=== PATIENT | female | born 1950 | race Caucasian/White ===

== ENCOUNTER 2016-12-28 07:29 | Emergency (ER) | payer BC ==
--- NOTE | 2016-12-28 07:59 | UC ---
Respiratory Complaint HPI - HPI Summary HPI Summary: 66 yo female with one week hx of productive cough and fever now left eye redness and d/c no n/v/d no sob - History of Current Complaint Chief Complaint: UCRespiratory Stated Complaint: COUGH CONGESTION FEVER Time Seen by Provider: 12/28/16 07:51 Hx Obtained From: Patient Onset/Duration: Gradual Onset, Lasting Days Timing: Constant Severity Initially: Mild Severity Currently: Moderate Pain Intensity: 2 Pain Scale Used: 0-10 Numeric Character: Sputum Description: - thick and green Associated Signs And Symptoms: Positive: Fever, Chills, Nasal Congestion - Allergies/Home Medications Allergies/Adverse Reactions: Allergies Allergy/AdvReac Type Severity Reaction Status Date / Time Acetaminophen [From Percocet] AdvReac MADE HER Verified 12/28/16 07:42 FEEL WEIRD Oxycodone [From Percocet] AdvReac MADE HER Verified 12/28/16 07:42 FEEL WEIRD Home Medications: Home Medications Hydrochlorothiazide TAB* [Hydrodiuril TAB*] 25 mg PO DAILY 12/28/16 [History Confirmed 12/28/16] Afhaxtairpyav-Xotchdngql-Glnrx [Nyquil Severe Cold/Flu 5-6.25-10-325 mg/15Ml] 1 liq PO PRN 12/28/16 [History] PMH/Surg Hx/FS Hx/Imm Hx Previously Healthy: Yes Cardiovascular History: Hypertension Respiratory History: Bronchitis, Pneumonia - Surgical History Surgical History: Yes Surgery Procedure, Year, and Place: 1985, 1986, 1989, tonsils 1972, cholesysTectomy 2001, ruptured ovary (right) 1983, hysterectomy 1996, bilateral cataract removal 2011. D/CX2. abdominal plasty dec - Family History Known Family History: Positive: Cardiac Disease, Hypertension - Social History Alcohol Use: Occasionally Alcohol Amount: 2-3 PER WEEK Substance Use Type: Marijuana Substance Use Comment - Amount & Last Used: occasional, several times weekly Smoking Status (MU): Former Smoker Have You Smoked in the Last Year: No When Did the Patient Quit Smoking/Using Tobacco: 1980 - Immunization History Most Recent Influenza Vaccination: FALL 2013 Most Recent Tetanus Shot: UNKNOWN Most Recent Pneumonia Vaccination: NEVER Review of Systems Constitutional: Fever, Chills, Fatigue Skin: Negative Eyes: Drainage, Eye Redness ENT: Negative Respiratory: Cough Cardiovascular: Negative Gastrointestinal: Negative Genitourinary: Negative Motor: Negative Neurovascular: Negative Musculoskeletal: Negative Neurological: Negative Psychological: Negative All Other Systems Reviewed And Are Negative: Yes Physical Exam Triage Information Reviewed: Yes Appearance: Well-Appearing, No Pain Distress, Well-Nourished Vital Signs: Initial Vital Signs Temp 97.5 F 12/28/16 07:33 Pulse 73 12/28/16 07:33 Resp 16 12/28/16 07:33 BP 133/70 12/28/16 07:33 Pulse Ox 98 12/28/16 07:33 Vital Signs Reviewed: Yes Eyes: Positive: Conjunctiva Inflamed, Discharge - left ENT: Positive: Hearing grossly normal Respiratory: Positive: Lungs clear, Normal breath sounds, No respiratory distress, No accessory muscle use Cardiovascular: Positive: RRR, No Murmur Musculoskeletal: Positive: ROM Intact, No Edema Neurological: Positive: Alert Psychological Exam: Normal Skin Exam: Normal UC Diagnostic Evaluation - Laboratory O2 Sat by Pulse Oximetry: 98 - normal/not hypoxic - Radiology Xray Interpretation: No Acute Changes Radiology Interpretation Completed By: Radiologist Respiratory Course/Dx - Differential Dx/Diagnosis Provider Diagnoses: acute bronchitis. conjunctivitis (left) Discharge - Discharge Plan Condition: Stable Disposition: HOME Prescriptions: Azithromycin TAB* [Zithromax TAB*] 250 mg PO DAILY #6 tab Polymyx/Trimethoprim OPTH* [Polytrim OPHTH*] 1 - 2 drop LEFT EYE QID #1 btl Patient Education Materials: Acute Bronchitis (ED), Conjunctivitis (ED) Referrals: Jose Bell MD [Primary Care Provider] - 4 Days (if not better)
[2016-12-28 08:00] VITALS: BP 133/70
--- NOTE | 2016-12-28 08:19 | RAD ---
INDICATION: Cough and fever COMPARISON: None TECHNIQUE: PA and lateral dual-energy views were obtained. FINDINGS: Bones/Soft Tissues: There are no acute bony findings. Cardiomediastinal: The cardiomediastinal silhouette is normal. Lungs: There are no infiltrates. Pleura: There are no pleural effusions. Other: None IMPRESSION: NO ACTIVE DISEASE.
== END 2016-12-28 08:33 | disposition home or self-care (01) ==
LOC: UCCORT 07:29
DX: J20.9 Acute bronchitis, unspecified (principal); H10.32 Unspecified acute conjunctivitis, left eye; I10 Essential (primary) hypertension; Z90.49 Acquired absence of other specified parts of digestive tract; Z90.710 Acquired absence of both cervix and uterus; Z98.42 Cataract extraction status, left eye; Z98.41 Cataract extraction status, right eye; Z88.1 Allergy status to other antibiotic agents; F12.90 Cannabis use, unspecified, uncomplicated; Z87.891 Personal history of nicotine dependence
CPT/HCPCS: 71020; 99212; G0463

== ENCOUNTER → 2018-06-13 09:26 | Emergency (ER) | payer BC, MEDICARE ==
--- NOTE | 2018-06-13 09:50 | ED ---
HPI Cardiac - HPI Summary HPI Summary: This patient is a 67 year old F presenting to ED with a chief complaint of chest discomfort and SOB since 1 week ago. On the , she came back from vacation and reports I felt crappy since then. The CC is described the chest discomfort as intermittent and heavy. The patient rates the pain 2/10 in severity. Symptoms aggravated by nothing. Symptoms alleviated by walking up and down stairs and menial tasks involving exertion since the . Patient reports R sided whole body numbness on the (lasting less than a minute while walking across the house), dizziness and weakness since then. She also reports that her lower extremities are in pain and she feels her heart beating fast while walking up and down stairs. She also had pressure behind her eyes earlier in the week but it resolved. PMHx of HTN. Patient goes to [facility]. She was seen and was referred to a area mechanic. - History of Current Complaint Chief Complaint: EDChestPainROMI Stated Complaint: SOB/WEAKNESS/CHILLS Time Seen by Provider: 06/13/18 09:35 Hx Obtained From: Patient Onset/Duration: Started Weeks Ago Timing: Intermittent, Lasting Seconds Current Severity: Mild Pain Intensity: 2 Pain Scale Used: 0-10 Numeric Chest Pain Radiates: No Character: Other: - heavy discomfort Aggravating Factor(s): Other: - walking up and down stairs and menial tasks involving exertion Alleviating Factor(s): Nothing Associated Signs and Symptoms: Positive: Numbness, Weakness, Dizziness, Other: - SOB, pressure behind her eyes, LE pain while walking up and down stairs - Additional Pertinent History Primary Care Physician: MK - Allergy/Home Medications Allergies/Adverse Reactions: Allergies Allergy/AdvReac Type Severity Reaction Status Date / Time No Known Allergies Allergy Verified 06/13/18 09:33 Home Medications: Home Medications Conjugated Estrogens VAG CM* [Premarin VAG CREAM*] 1 applic VAGINAL BEDTIME PRN 06/13/18 [History Confirmed 06/13/18] Sertraline* [Zoloft*] 25 mg PO DAILY 06/13/18 [History Confirmed 06/13/18] PMH/Surg Hx/FS Hx/Imm Hx Previously Healthy: No Endocrine/Hematology History: Reports: Hx Anemia - OK NOW Cardiovascular History: Reports: Hx Hypertension - ON MEDS Denies: Other Cardiovascular Problems/Disorders Respiratory History: Reports: Hx Sleep Apnea - CPAP user for 12 years, Other Respiratory Problems/Disorders - mild post nasal drip Denies: Hx Asthma GI History: Reports: Hx Gastroesophageal Reflux Disease Denies: Other GI Disorders Musculoskeletal History: Reports: Hx Arthritis - LEFT KNEE Denies: Other Musculoskeletal History Sensory History: Reports: Hx Cataracts - TOVA, Hx Contacts or Glasses - glasses Denies: Hx Hearing Aid Opthamlomology History: Reports: Hx Cataracts - TOVA, Hx Contacts or Glasses - glasses - Cancer History Hx Chemotherapy: No Hx Radiation Therapy: No - Surgical History Surgery Procedure, Year, and Place: 1985, 1986, 1989, tonsils 1972, cholesysTectomy 2001, ruptured ovary (right) 1983, hysterectomy 1996, bilateral cataract removal 2011. D/CX2. abdominal plasty dec Hx Anesthesia Reactions: Yes - itchy rash on chest after one of the same day surgery Infectious Disease History: No Infectious Disease History: Denies: Traveled Outside the [place] in Last 30 Days - Family History Known Family History: Positive: Cardiac Disease, Hypertension - Social History Alcohol Use: Occasionally Alcohol Amount: 2-3 PER WEEK Substance Use Type: Reports: Marijuana Substance Use Comment - Amount & Last Used: occasional, several times weekly Smoking Status (MU): Former Smoker Have You Smoked in the Last Year: No Review of Systems Positive: Other - pressure behind her eyes (since resolved) Positive: Other - chest discomfort (heavy) Positive: Shortness Of Breath Positive: Other - LE pain while walking up and down stairs Neurological: Other - dizziness Positive: Weakness, Numbness - R sided whole body numbness All Other Systems Reviewed And Are Negative: Yes Physical Exam - Summary Physical Exam Summary: Appearance: The patient is well-nourished in no acute distress and in no acute pain. Skin: The skin is warm and dry and skin color reflects adequate perfusion. HEENT: The head is normocephalic and atraumatic. The pupils are equal and reactive. The conjunctivae are clear and without drainage. Nares are patent and without drainage. Mouth reveals moist mucous membranes and the throat is without erythema and exudate. The external ears are intact. The ear canals are patent and without drainage. The tympanic membranes are intact. Neck: The neck is supple with full range of motion and non-tender. There are no carotid bruits. There is no neck vein distension. Respiratory: Chest is non-tender. Lungs are clear to auscultation and breath sounds are symmetrical and equal. Cardiovascular: Heart is regular rate and rhythm. There is no murmur or rub auscultated. There is no peripheral edema and pulses are symmetrical and equal. Abdomen: The abdomen is soft and non-tender. There are normal bowel sounds heard in all four quadrants and there is no organomegaly palpated. Musculoskeletal: There is no back tenderness noted. Extremities are non-tender with full range of motion. There is good capillary refill. There is no peripheral edema or calf tenderness elicited. Neurological: Patient is alert and oriented to person, place and time. The patient has symmetrical motor strength in all four extremities. Cranial nerves are grossly intact. Deep tendon reflexes are symmetrical and equal in all four extremities. Psychiatric: The patient has an appropriate affect and does not exhibit any anxiety or depression. GCS: 15 Triage Information Reviewed: Yes Vital Signs On Initial Exam: Initial Vitals Temp Pulse Resp BP Pulse Ox 96.3 F 89 14 115/85 98 06/13/18 09:29 06/13/18 09:29 06/13/18 09:29 06/13/18 09:29 06/13/18 09:29 Vital Signs Reviewed: Yes Diagnostics - Vital Signs Vital Signs Temp Pulse Resp BP Pulse Ox 06/13/18 09:29 96.3 F 89 14 115/85 98 - Laboratory Result Diagrams: 06/13/18 10:25 06/13/18 10:25 Lab Statement: Any lab studies that have been ordered have been reviewed, and results considered in the medical decision making process. - Radiology Chest x-ray Radiology Interpretation Completed By: Radiologist Summary of Radiographic Findings: NO ACTIVE CARDIOPULMONARY DISEASE. ED physician has reviewed this report. - CT Brain CT CT Interpretation Completed By: Radiologist Summary of CT Findings: No intracranial mass or hemorrhage is noted. ED physician has reviewed this report. - EKG 0930 Cardiac Rate: NL - 73 BPM EKG Rhythm: Sinus Rhythm Summary of EKG Findings: nonspecific inferoseptal changes consistent with Disposition - Course Course Of Treatment: Ms. Camarillo presented to with a concern for an episode that occurred last Saturday where she had sudden numbness of the right side of her body. She did a FAST exam on herself at the time and found nothing but the numbness of the right side and it did not last for long certainly less than a half an hour. Since that time she has felt fatigued and is becoming concerned because she does get some chest pressure and shortness of breath when she exerts herself. She denies any other symptomatology. She was nontoxic in appearance when I saw her and her vital signs were stable. Her exam was unremarkable with an NIH stroke scale of 0. There was the faintest suggestion of dysmetria on the right side of her body but this was very subjective. Sensory was intact. She was worked up for cardiac including a delayed troponins. She was checked with a d-dimer and chest x-ray. A CT scan of the brain was obtained and was unremarkable. I spoke with Dr. White and he felt that additional outpatient workup would be sufficient. They're willing to follow her in the clinic in the next couple of weeks. He recommends starting her on an aspirin and atorvastatin. - Diagnoses Provider Diagnoses: TIA (transient ischemic attack), Chest pain Discharge - Sign-Out/Discharge Documenting (check all that apply): Patient Departure - Discharge Plan Condition: Stable Disposition: HOME Prescriptions: Atorvastatin* [Lipitor 40 MG*] 40 mg PO DAILY #30 tab Referrals: Nadine Ceballos PA [Primary Care Provider] - Alyce White MD [Medical Doctor] - Quintin Pringle DO [Doctor of Osteopathy] - Additional Instructions: Please return to the emergency department with any new or worsening symptoms. PLEASE RESUME TAKING YOUR ASPIRIN. Follow up with Dr. White and Dr. Pringle within the next 2-3 days. - Billing Disposition and Condition Condition: STABLE Disposition: Home - Attestation Statements Document Initiated by Kerrie: Yes Documenting Scribe: Solis Aguilar Provider For Whom Kerrie is Documenting (Include Credential): Raymundo Motley MD Scribe Attestation: I, Solis Aguilar, scribed for Raymundo Motley MD on 06/13/18 at 1448. Scribe Documentation Reviewed: Yes Provider Attestation: The documentation as recorded by the Solis riggs accurately reflects the service I personally performed and the decisions made by me, Raymundo Motley MD Status of Scribe Document: Viewed
--- OUTSIDE RECORDS SUMMARY | 2018-06-13 10:18 | XMS REPORT | Continuity of Care Document ---
:1950 External Reference #:[id number] Author Name Geronimo Sosa Care Team Providers Name Role Phone HCP given Primary Care Physician Unavailable Payers Type Date Identification Numbers Payment Provider Subscriber Effective: Policy Number: [id number] [facility] Shira Matos 2016 Services Expires: 2017 PayID: [id number] [place] [address] Effective: 2017 Policy Number: [employer] Shira Matos [id number] Ppo PayID: [id number] [address] [address] [place] [address] Effective: 2016 Policy Number: [facility] Shira Matos [id number] Services Expires: 2017 PayID: [id number] [place] [address] Advance Directives Description No Information Available Problems Date Description Provider Status Onset: 01/24/2004 Chondromalacia of patella Navin Harris M.D. Active Onset: 05/07/2016 Essential hypertension Tari Bell M.D. Active Onset: 12/20/2008 Essential hypertension Heather Garcia MD Inactive Inactive: 09/12/2015 Family History Date Family Member(s) Problem(s) Comments Father due to [place] () - AGE 57 Father 1924 Mother TIA 80's Mother Mouth Cancer tongue Mother 1928 Mother macular degeneration Number of Children 2 sons and 1 daughter First Son Sravan First Son 1985 First Son on luvox. Second Son Douglas Second Son 1986 First Daughter Shelby First Daughter 1989 First Brother General Health Good First Brother Angel First Brother 1955 Second Brother General Health Poor Second Brother Spastic Familial Paresis Second Brother Mario Second Brother 1958 : Third Brother due to he had spastic familial (07/31/2012) Pulmonary Embolus paraparesis and severe varicose veins, limited in movement Third Brother Raúl Third Brother 1960 Fourth Brother General Health Good Fourth Brother Coy Fourth Brother 1964 Fourth Brother familial spastic paresis. Fifth Brother Navin Fifth Brother 1965 Fifth Brother ITP-- age 18 yr.--Pe to lung 3 days post op Paternal Grandfather 47 of [place] Paternal Grandmother age 87 Maternal Grandfather 86 or so, "old age" Maternal Grandmother coronary artery disease, 86 and had colon cancer. Social History Type Date Description Comments Sex Unknown Education Highest level of education completed is post grad Marital Status Patient is , has 3 children. 1 Son graduated [employer], age 27, working in [place]. One son is an glass science engineer, lives in [place]. Daughter at [employer]. 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 Uses sunscreen Seat Belt/Car Seat Always uses a seat belt Currently Active The patient is currently sexually active Contraceptive Methods Does not currently use any method of control Age 1st Gwinner First intercourse was at age 21 # Partners in a Lifetime The patient has had 2 sexual partners Additional Info Sexual preference is men Allergies, Adverse Reactions, Alerts Description No Known Drug Allergies Medications Medication Date Status Form Strength Qnty SIG Indications Ordering Provider Fluticasone 12/19 Active Suspension 50mcg/Act 16uni [place] Two J01.90 Silcoff, ts Sprays In Yoan Each BradyDGagandeep Nostril Twice A Day Until Better Hydrochlorothiazi 09/17 Active Tablets 25mg 90tab 1 every I10 Silcoff, de s day for bp Kellee Milton Proair HFA 08/15 Active Aerosol 108(90Bas 8.5un Take 1-2 J20.9 Silcoff, e) its Puffs Up Yoan, mcg/Act To Four M.D. Times A Day as Needed For Breathing Sertraline HCL 04/17 Active Tablets 50mg 90tab Take 05/21 F33.0 s Tablet By Yoan, Mouth Two M.D. Times A Day Premarin 05/31 Active Cream 0.625mg/G 30gm uses 1 M gram per Yoan, week or M.D. 1/2 gram twice weekly. Aleve 06/24 Active Tablets 220mg OTC as needed migraine, body aches Excedrin 06/24 Active Tablets 250-250mg occassiona Unknown lly for headache and body aches Cpap 08/27 Active Jose, Heather SUERO Aspir-[address] 81mg prn I10 Unknown / Lisinopril 09/17 Hx Tablets 10mg 90tab take 1 I10 s tablet Yoan, - every M.D. 09/17 for blood pressure control Flonase Allergy 08/14 Hx Suspension 50mcg/Act 9.900 2 sprays J01.90 Silco, ml twice a Yoan, - day until M.D. 12/19 Azithromycin 07/08 Hx Tablets 250mg 6tabs 2 tabs day R05 one and 1 Yoan, - tab days M.D. 08/14 2- Fluticasone 07/08 Hx Suspension 50mcg/Act 16uni two sprays J01.90 Silcoff, ts (50 Yoan, - mcg/spray) M.D. 07/27 nostril once daily for sinus congestion Metronidazole 03/09 Hx Tablets 500mg 15tab take 1 Sopchak s tablet by Quintin, - mouth 3 D.O. 03/14 times day for 5 days Hydrochlorothiazi 05/07 Hx Tablets 25mg 90tab 1 every I10 Silcoff, s day for bp Yoan - M.D. 09/17 Sertraline HCL 04/03 Hx Tablets 50mg 60tab 1 by mouth F33.0 s twice a A. - day Maranda, 04/16 M.D. Metronidazole 07/29 Hx Cream 0.75% 45gm insert 5 Tyler, gm Zuleika SUERO - vaginally 04/16 qhs for days Aspir-[address] 06/[address] 81mg 1 by mouth I10 Sopmamadouk, every day Quintin - D.OGagandeep 04/17 Premarin 12/18 Hx Cream 0.625mg/G 50G apply 0.5 624.1 Silcoiqra, M g qhs,pv x Yoan, - 2 weeks M.D. 02/19 reduce to using 2 days a week and/or applying small amt to the vaginal opening Azithromycin 12/18 Hx Tablets 250mg 6tabs 2 tabs day 466.0 Silcoff, one, one Yoan, - tab days M.D. 06/25 2- Prednisone 12/18 Hx Tablets 20mg 5tabs 1 tab po 466.0 Silcoiqra, qam x 5 Yoan, - days M.D. 06/25 Ventolin HFA 12/18 Hx Aerosol 108(90Bas 1cani 2 puff q 466.0 Silcoff, e) mcg/ac ster 4-6 Max Milton M.D. 06/25 Omeprazole 03/04 Hx Tablets 20mg 60tab 1 po bid 472.1 Juliano, s Max Milton M.D. 02/19 Hydrochlorothiazi 03/04 Hx Tablets 25mg 90tab Take One 401.9 Juliano, s Tablet By Yoan, - Mouth M.D. 02/19 Every Day Fish Oil 08/31 Hx Capsules Silcoiqra, Max Milton M.D. 03/03 PT For L Arm And 11/26 Hx please 729.5 Juliano Neck Pain evaluate Yoan (Suspected C5-6 - and treatKellee Radiculopathy) 01/16 in hep, modalities prn. 723.1 Bactroban 08/03/2008 - Hx Cream 2% 15G rub small 682.8 Jose, 01/16/2010 amount into Heather SUERO affected areas on right forearm tid x 5 days. Calcium-Vitamin 06/21/2008 - Hx Tablets Jose D 03/03/2012 Heather SUERO Centrum Silver 06/21/2008 - Hx Tablets 1 po qd Jose, 03/03/2012 Heather SUERO Amoxicillin 05/07/2008 - Hx Capsules 500mg 30caps 1 tid For 10 462 Tari A. 06/21/2008 Jessie Bell M.D. Hydrocodone 10/17/2007 - Hx Tablets 5-500 30tabs one to 2 724.3 Jose Bitartrate/Apap 06/21/2008 mg tablets po Heather SUERO q6h prn for pain Levaquin 08/14/2007 - Hx Tablets 500mg 10tabs 1 PO Once 466.0 Jose, 08/24/2007 Daily as Heather SUERO Directed Sertraline HCL 08/14/2007 - Hx Tablets 50mg 30tabs one tablet po 296.31 Silcoff, 03/03/2012 once daily in Yoan, the evening Kellee Robitussin ac 08/14/2007 - Hx 250ml 10 cc po q8h 466.0 Jose, 10/17/2007 prn Heather SUERO Wellbutrin XL 03/25/2007 - Hx Tablets ER 150mg 30tabs 1 po qd 296.31 Silcoff, 03/03/2012 24HR Kellee Milton Aspirin 02/25/2007 - Hx Tablets 81mg 1 PO qd For Unknown 03/03/2012 Heart Disease Prevention Premarin 08/27/2006 - Hx Cream 0.625 50G apply as 627.3 Jose, Vaginal 12/20/2008 mg/GM directed Heather SUERO Cipro 04/18/2006 - Hx Tablets 250mg 14tabs one tablet po Jose, 04/25/2006 bid for 5 Heather benavides Singulair 11/30/2005 - Hx Tablets 10mg 30tabs 1 po qd in 786.2 Silcoff, 03/19/2006 evening Kellee Milton Amoxil 11/03/2005 - Hx Tablets 500mg 40tabs 2 tablets po 473.0 Jose, 11/13/2005 bid Heather SUERO Robitussin A-c 11/03/2005 - Hx Syrup 100mg 250ml 10 cc po q 8h 473.0 Silcoff, 03/19/2006 ;10mg prn Yoan /ALEENA Goodson 786.2 Cephalexin 06/12/2005 Hx Capsules 250mg 40caps 1 po qid 682.9 Tari - A. 07/10/2005 Kellee Bell Aristocort 06/12/2005 Hx Ointment 0.1% 30gm rub in well 782.1 Tari - bid and prn A. 07/10/2005 itch to rash Kellee Bell Vivelle 01/16/2005 Hx Patches 0.05mg 1Box use 2 times A Jose, - /Day week as Heather SUERO 08/27/2006 prescribed Prozac 09/26/2004 Hx Capsules 40mg 60caps 2 tabs of 20 Breiman, - mg Dacia, 07/10/2005 N.P. Prozac 09/26/2004 Hx Capsules 20mg 180caps 2 tabs A day Max Garcia MD 09/17/2006 Work Note 06/22/2004 Hx patient seen 485 maranda - and treated 11/30/2005 here. she has had pnuemonia at least since 06/13/03 and can return to work. Doxycycline 06/13/2004 Hx Tablets 100mg 20tabs 1 cap bid for Navin H. - bronchopneumon Steven, 09/26/2004 toy Goodson Phenergan W/ Codeine 06/13/2004 Hx Syrup 6.25mg 120ml 1 or 2 tsp po Navin H. - ;10mg/ q 3 hr prn for Nitoger, 09/26/2004 5ML cough (patient M.Homer bringing rx) Work Note 06/05/2004 Hx please excuse Max Isaacs from Dacia, 11/30/2005 work 06/02/04 N.P. until 06/08/04. She is being evaluated an HRT Patch 06/02/2004 Hx Tari - AGagandeep 07/10/2005 Kellee Bell Advil 06/02/2004 Hx Tablets 200mg Tari - A. 09/26/2004 Kellee Bell Rimantadine 06/02/2004 Hx Tablets 100mg 10tabs 1 po bid for 487.1 Tari - influenza A. 06/07/2004 Kellee Bell Prozac 04/14/2003 Hx Capsules 20mg 180caps take 2 tablets Sotrmyiman, - everyday Dacia 09/26/2004 N.P. Hydrochlorothiazide 04/14/2003 Hx Tablets 25mg 90tabs take 1 tablet 401.9 Juliano, - orally Yoan, 03/03/2012 everyday M.D. Prozac 20 MG 2 Tabs 02/11/2003 Hx Tabs 90tabs take 2 tablets Breiman, Everyday - everyday Dacia, 03/12/2003 N.P. Sertraline HCL Hx Tablets 50mg one tablet po 296.31 Maranda , - once daily in Tari 04/03/2016 the evening A., Kellee Medications Administered in Office Medication Date Status Form Strength Qnty SIG Indications Ordering Provider H1N1 Swine Flu Administered Injection Nurse's Vaccine 009 Schedule Immunizations CPT Code Status Date Vaccine Lot # [id number] Given 01/27/2018 Influenza Vaccine Split Virus Preservative Free Im [id number] Use 07696 Given 09/18/2017 Shingrix Zoster (Shingles) Vaccine (HZV) [id number] Recomb,Subnit,Adjuvanted 19444 Given 04/26/2017 Influenza Virus Vaccine, Quadrivalent, Split, [id number] Preservative Free 44528 Given 10/22/2016 Prevnar 13 [id number] 77522 Given 04/03/2016 Influenza Virus Vaccine, Quadrivalent, Split, [id number] Preservative Free 04187 Given 11/02/2015 Zostavax [id number] U-Flu Given 05/24/2015 Influenza,Unspecified 78335 Given 03/19/2014 Flu, Split Virus 3Yrs [id number] 64438 Given 05/23/2013 Flu, Split Virus 3Yrs 52206 Given 04/21/2012 Flu, Split Virus 3Yrs [id number] 98604 Given 05/17/2011 Flu, Split Virus 3Yrs [id number] 29739 Given 01/20/2010 Adacel or Boostrix, TDaP [id number] 22593 Given 03/19/2008 Flu, Split Virus 3Yrs [id number] 55579 Given 05/05/2007 Flu, Split Virus 3Yrs [id number] 12097 Given 04/10/2006 Flu, Split Virus 3Yrs 86997 Given 04/10/2006 Flu, Split Virus 3Yrs [id number] 18453 Given 04/26/2005 Pneumococcal Immunization 24596 Given 04/26/2005 Pneumococcal Immunization [id number] 53234 Given 04/26/2005 Flu, Split Virus 3Yrs 79957 Given 04/26/2005 Flu, Split Virus 3Yrs [id number] 14735 Given 05/05/2003 Flu, Split Virus 3Yrs 57286 Given 05/05/2003 Flu, Split Virus 3Yrs Vital Signs Date Vital Result Comment 06/12/2018 11:02am BP Systolic 117 mmHg BP Diastolic 80 mmHg Heart Rate 101 /min Weight 163.00 lb 05/01/2018 9:05am BP Systolic 130 mmHg BP Diastolic 70 mmHg Height 67.25 inches 5'7.25" Weight 168.00 lb BMI (Body Mass Index) 26.1 kg/m2 11/14/2017 9:44am BP Systolic 132 mmHg BP Diastolic 74 mmHg Body Temperature 98.9 F Weight 170.00 lb 10/22/2017 10:56am BP Systolic 138 mmHg BP Diastolic 84 mmHg BP Systolic Recheck 132 mmHg BP Diastolic Recheck 80 mmHg Weight 170.00 lb 09/17/2017 9:52am BP Systolic 148 mmHg BP Diastolic 88 mmHg BP Systolic Recheck 150 mmHg BP Diastolic Recheck 98 mmHg Height 67.50 inches 5'7.50" Weight 174.00 lb BMI (Body Mass Index) 26.8 kg/m2 08/15/2017 9:05am BP Systolic 140 mmHg BP Diastolic 90 mmHg BP Systolic Recheck 140 mmHg BP Diastolic Recheck 90 mmHg Body Temperature 98.7 F Weight 174.00 lb 07/08/2017 4:38pm BP Systolic 120 mmHg BP Diastolic 78 mmHg Heart Rate 72 /min O2 % BldC Oximetry 97 % Body Temperature 99.6 F Weight 173.00 lb 03/07/2017 1:08pm BP Systolic 120 mmHg BP Diastolic 78 mmHg Height 67 inches 5'7" Weight 168.00 lb BMI (Body Mass Index) 26.3 kg/m2 10/22/2016 8:58am BP Systolic 120 mmHg BP Diastolic 70 mmHg Heart Rate 80 /min Respiratory Rate 16 /min Weight 170.00 lb 07/12/2016 8:57am BP Systolic 134 mmHg BP Diastolic 84 mmHg Weight 171.00 lb 05/07/2016 9:11am BP Systolic 146 mmHg k [id number]=[id number] BP Diastolic 80 mmHg k ggdf=930b Heart Rate 70 /min 04/17/2016 1:47pm BP Systolic 160 mmHg k BP Diastolic 90 mmHg k Heart Rate 70 /min Weight 172.00 lb 04/03/2016 3:29pm BP Systolic 180 mmHg k BP Diastolic 88 mmHg k Heart Rate 70 /min Respiratory Rate 16 /min Height 67.25 inches 5'7.25" Weight 170.00 lb BMI (Body Mass Index) 26.4 kg/m2 11/02/2015 2:24pm BP Systolic 118 mmHg BP Diastolic 74 mmHg BP Systolic Recheck 126 mmHg R arm sitting BP Diastolic Recheck 86 mmHg R arm sitting Heart Rate 92 /min Weight 165.00 lb 09/12/2015 3:53pm BP Systolic 132 mmHg BP Diastolic 74 mmHg Height 67.5 inches 5'7.50" Weight 175.00 lb BMI (Body Mass Index) 27.0 kg/m2 07/29/2014 9:41am BP Systolic 136 mmHg BP Diastolic 82 mmHg Height 67.25 inches 5'7.25" Weight 178.00 lb BMI (Body Mass Index) 27.7 kg/m2 06/25/2014 2:10pm BP Systolic 160 mmHg BP Diastolic 98 mmHg Height 67.25 inches 5'7.25" Weight 178.00 lb BMI (Body Mass Index) 27.7 kg/m2 02/19/2014 1:27pm BP Systolic 118 mmHg BP Diastolic 80 mmHg Height 67 inches 5'7" Weight 180.00 lb BMI (Body Mass Index) 28.2 kg/m2 06/25/2013 2:08pm BP Systolic 131 mmHg BP Diastolic 82 mmHg Heart Rate 63 /min Height 67 inches 5'7" Weight 177.00 lb BMI (Body Mass Index) 27.7 kg/m2 12/18/2012 4:03pm BP Systolic 128 mmHg BP Diastolic 86 mmHg Heart Rate 70 /min O2 % BldC Oximetry 9798 % Body Temperature 98.9 F Weight 175.00 lb 09/12/2012 9:01am BP Systolic 135 mmHg BP Diastolic 76 mmHg Heart Rate 65 /min Height 67 inches 5'7" Weight 177.00 lb BMI (Body Mass Index) 27.7 kg/m2 06/30/2012 1:51pm BP Systolic 115 mmHg BP Diastolic 79 mmHg Heart Rate 76 /min Weight 177.00 lb 04/21/2012 9:14am BP Systolic 142 mmHg BP Diastolic 79 mmHg BP Systolic Recheck 149 mmHg BP Diastolic Recheck 79 mmHg Heart Rate 89 /min 79 Height 67 inches 5'7" Weight 169.00 lb BMI (Body Mass Index) 26.5 kg/m2 Last Menstrual Period 0 hysterectomy 03/04/2012 1:50pm BP Systolic 177 mmHg BP Diastolic 90 mmHg BP Systolic Recheck 132 mmHg BP Diastolic Recheck 82 mmHg Heart Rate 80 /min 75 Body Temperature 98.7 F Height 67 inches 5'7" Weight 171.00 lb BMI (Body Mass Index) 26.8 kg/m2 Last Menstrual Period 0 08/31/2010 3:47pm BP Systolic 134 mmHg BP Diastolic 75 mmHg BP Systolic Recheck 135 mmHg BP Diastolic Recheck 74 mmHg Heart Rate 76 /min 73 Weight 190.00 lb 01/16/2010 9:41am BP Systolic 131 mmHg BP Diastolic 76 mmHg Height 67.25 inches 5'7.25" Weight 198.00 lb BMI (Body Mass Index) 30.8 kg/m2 05/27/2009 8:44am BP Systolic 137 mmHg elect BP Diastolic 81 mmHg elect BP Systolic Recheck 122 mmHg BP Diastolic Recheck 78 mmHg Heart Rate 80 /min Height 67.75 inches 5'7.75" Weight 192.00 lb BMI (Body Mass Index) 29.4 kg/m2 12/20/2008 10:15am BP Systolic 102 mmHg BP Diastolic 60 mmHg Height 67.75 inches 5'7.75" Weight 207.00 lb BMI (Body Mass Index) 31.7 kg/m2 11/26/2008 1:58pm BP Systolic 118 mmHg BP Diastolic 70 mmHg Height 67.5 inches 5'7.50" Weight 211.00 lb 210 BMI (Body Mass Index) 32.6 kg/m2 08/03/2008 5:07pm BP Systolic 120 mmHg BP Diastolic 76 mmHg Body Temperature 98.0 F 06/21/2008 3:42pm BP Systolic 122 mmHg BP Diastolic 70 mmHg Weight 204.00 lb 05/10/2008 9:47am BP Systolic 110 mmHg BP Diastolic 74 mmHg 05/07/2008 11:41am BP Systolic 116 mmHg BP Diastolic 88 mmHg Body Temperature 100.6 F Height 68 inches 5'8" 10/17/2007 3:39pm BP Systolic 120 mmHg BP Diastolic 78 mmHg Height 68 inches 5'8" Weight 200.00 lb BMI (Body Mass Index) 30.4 kg/m2 Last Menstrual Period 0 09/12/2007 9:45am BP Systolic 138 mmHg BP Diastolic 80 mmHg BP Systolic Recheck 130 mmHg BP Diastolic Recheck 80 mmHg Height 68 inches 5'8" Weight 194.00 lb BMI (Body Mass Index) 29.5 kg/m2 08/14/2007 9:45am BP Systolic 132 mmHg BP Diastolic 84 mmHg Body Temperature 98.5 F Height 68 inches 5'8" Weight 195.50 lb BMI (Body Mass Index) 29.7 kg/m2 05/15/2007 12:58pm BP Systolic 120 mmHg BP Diastolic 76 mmHg Height 68 inches 5'8" Weight 200.00 lb BMI (Body Mass Index) 30.4 kg/m2 03/25/2007 4:47pm BP Systolic 116 mmHg BP Diastolic 58 mmHg Height 68 inches 5'8" 02/25/2007 1:34pm BP Systolic 110 mmHg BP Diastolic 80 mmHg Body Temperature 98.9 F Height 68 inches 5'8" Weight 206.00 lb BMI (Body Mass Index) 31.3 kg/m2 Last Menstrual Period 0 08/27/2006 8:49am BP Systolic 118 mmHg BP Diastolic 80 mmHg Height 68 inches 5'8" Weight 214.00 lb BMI (Body Mass Index) 32.5 kg/m2 Last Menstrual Period 0 03/19/2006 2:42pm BP Systolic 100 mmHg BP Diastolic 60 mmHg Body Temperature 97.9 F Height 68 inches 5'8" Weight 224.50 lb BMI (Body Mass Index) 34.1 kg/m2 11/30/2005 11:34am BP Systolic 120 mmHg BP Diastolic 80 mmHg Body Temperature 98.6 F Height 68 inches 5'8" Weight 225.00 lb BMI (Body Mass Index) 34.2 kg/m2 11/03/2005 9:47am BP Systolic 118 mmHg BP Diastolic 90 mmHg Body Temperature 98.6 F Height 68 inches 5'8" 09/29/2005 11:46am BP Systolic 120 mmHg BP Diastolic 72 mmHg Height 68 inches 5'8" Weight 225.00 lb Per PT BMI (Body Mass Index) 34.2 kg/m2 07/10/2005 3:20pm BP Systolic 118 mmHg BP Diastolic 80 mmHg Height 68 inches 5'8" Weight 223.00 lb BMI (Body Mass Index) 33.9 kg/m2 06/12/2005 3:02pm BP Systolic 110 mmHg BP Diastolic 78 mmHg Body Temperature 98.3 F Height 68 inches 5'8" 01/16/2005 9:47am BP Systolic 122 mmHg BP Diastolic 72 mmHg Height 68 inches 5'8" Weight 211.00 lb BMI (Body Mass Index) 32.1 kg/m2 09/26/2004 1:44pm BP Systolic 120 mmHg BP Diastolic 78 mmHg Height 68 inches 5'8" Weight 201.00 lb BMI (Body Mass Index) 30.6 kg/m2 06/22/2004 4:08pm BP Systolic 120 mmHg BP Diastolic 80 mmHg Height 68 inches 5'8" Weight 227.00 lb BMI (Body Mass Index) 34.5 kg/m2 06/15/2004 11:13am Body Temperature 98.5 F Height 68 inches 5'8" 06/13/2004 4:54pm Body Temperature 98.4 F Pt feels warmer than that. Height 68 inches 5'8" Weight 225.00 lb per pt BMI (Body Mass Index) 34.2 kg/m2 06/02/2004 5:15pm Heart Rate 80 /min Respiratory Rate 16 /min Body Temperature 99.3 F Height 68 inches 5'8" 03/17/2004 11:43am BP Systolic 110 mmHg BP Diastolic 90 mmHg Height 68 inches 5'8" Weight 227.00 lb BMI (Body Mass Index) 34.5 kg/m2 01/04/2004 12:00pm BP Systolic 110 mmHg BP Diastolic 70 mmHg Height 68 inches 5'8" Weight 228.00 lb BMI (Body Mass Index) 34.7 kg/m2 Last Menstrual Period 0 pt had hyster in 199512/04/2003 9:46am BP Systolic 130 mmHg BP Diastolic 82 mmHg Body Temperature 98.2 F Weight 222.00 lb 07/22/2003 1:16pm BP Systolic 140 mmHg BP Diastolic 86 mmHg Weight 222.00 lb 03/12/2003 1:56pm BP Systolic 152 mmHg BP Diastolic 90 mmHg Weight 184.00 lb Last Menstrual Period 0 Results Test Date Facility Test Result H/L Range Note Comp Metabolic Panel 09/18/2017 [facility] Sodium 137 mmol/L Low 139- 145 [phone] Potassium 3.6 mmol/L N 3.5-5.0 Chloride 100 mmol/L Low 101-111 Co2 Carbon Dioxide 28 mmol/L N 22-32 Anion Gap 9 mmol/L N 2-11 Glucose 104 mg/dL High 70-100 Blood Urea Nitrogen 10 mg/dL N 6-24 Creatinine 0.71 mg/dL N 0.51-0.95 BUN/Creatinine Ratio 14.1 N 8-20 Calcium 9.3 mg/dL N 8.6-10.3 Total Protein 7.2 g/dL N 6.4-8.9 Albumin 4.3 g/dL N 3.2-5.2 Globulin 2.9 g/dL N 2-4 Albumin/Globulin Ratio 1.5 N 1-3 Total Bilirubin 0.40 mg/dL N 0.2-1.0 Alkaline Phosphatase 60 U/L N 34-104 Alt 13 U/L N 7-52 Ast 19 U/L N 13-39 Egfr Non- 82.6 >60 Egfr 106.3 >60 1 CBC Auto Diff 09/18/2017 [facility] White Blood Count 5.3 10^3/uL N 3.5-10.8 [phone] Red Blood Count 3.97 10^6/uL Low 4.0-5.4 Hemoglobin 12.8 g/dL N 12.0-16.0 Hematocrit 38 % N 35-47 Mean Corpuscular Volume 95 fL N 80-97 Mean Corpuscular Hemoglobin 32 pg High 27-31 Mean Corpuscular HGB Conc 34 g/dL N 31-36 Red Cell Distribution Width 14 % N 10.5-15 Platelet Count 280 10^3/uL N 150-450 Mean Platelet Volume 8.5 um3 N 7.4-10.4 Abs Neutrophils 3.3 10^3/uL N 1.5-7.7 Abs Lymphocytes 1.5 10^3/uL N 1.0-4.8 Abs Monocytes 0.5 10^3/uL N 0-0.8 Abs Eosinophils 0 10^3/uL N 0-0.6 Abs Basophils 0.1 10^3/uL N 0-0.2 Abs Nucleated RBC 0 10^3/uL Granulocyte % 61.5 % N 38-83 Lymphocyte % 27.3 % N 25-47 Monocyte % 9.4 % High 0-7 Eosinophil % 0.8 % N 0-6 Basophil % 1.0 % N 0-2 Nucleated Red Blood Cells % 0 Lipid Profile (Trig/Chol/HDL) 09/18/2017 [facility] Triglycerides 76 mg /dL 2 [phone] Cholesterol 215 mg/dL 3 HDL Cholesterol 72.5 mg/dL 4 LDL Cholesterol 127 mg/dL 5 Laboratory test 09/18/2017 [facility] Hepatitis C Nonreactive Nonreactive finding [phone] Antibody Laboratory test 09/17/2017 [facility] Cytology SEE RESULT 6 finding [phone] BELOW Ua Inhouse 09/17/2017 In House Ua Glucose - 7 Ua Bilirubin - Ua Ketones - Ua Specific Gatzke 1.005 Ua Blood - Ua PH 6.0 Ua Protein - Ua Urobilinogen - Ua Nitrite - Ua Leukocytes - Laboratory test 03/08/2017 [facility] Stool Occult SEE RESULT 8 finding [phone] Blood Diag BELOW Laboratory test 07/25/2016 [facility] Surgical SEE RESULT 9, 10 finding [phone] Pathology BELOW Urine Micro 07/12/2016 In House Ua WBC 1-2 11 Inhouse Ua RBC - Ua Casts - Ua Epi TNTC Ua Other - Ua Glucose - Ua Bilirubin - Ua Ketones - Ua Specific Gatzke 1.005 Ua Blood - Ua PH 7.5 Ua Protein - Ua Urobilinogen - Ua Nitrite - Ua Leukocytes - Basic Metabolic Panel 07/12/2016 [facility] Sodium 137 mmol/L N 133- 145 [phone] Potassium 3.9 mmol/L N 3.5-5.0 Chloride 100 mmol/L Low 101-111 Co2 Carbon Dioxide 31 mmol/L N 22-32 Anion Gap 6 mmol/L N 2-11 Glucose 95 mg/dL N 70-100 Blood Urea Nitrogen 12 mg/dL N 6-24 Creatinine 0.71 mg/dL N 0.51-0.95 BUN/Creatinine Ratio 16.9 N 8-20 Calcium 9.5 mg/dL N 8.6-10.3 Egfr Non- 82.9 N >60 Egfr 106.6 N >60 12 Xray 04/03/2016 [facility] Medicine X-Ray, Chest, 2 wnl Views Laboratory test 01/23/2015 [facility] Culture Genital & SEE RESULT 13 finding [phone] Sensitivity BELOW Gardnerella/Yeast: Vaginal Dna SEE RESULT BELOW 14 Trichomonas: Vaginal Dna Probe SEE RESULT BELOW 15 CBC Auto Diff 01/10/2015 [facility] White Blood Count 4.9 10^3/uL N 4.8-10.8 16 [phone] Red Blood Count 3.80 10^6/uL Low 4.0-5.4 Hemoglobin 12.2 g/dL N 12.0-16.0 Hematocrit 37 % N 35-47 Mean Corpuscular Volume 97 fL N 80-97 Mean Corpuscular Hemoglobin 32 pg High 27-31 Mean Corpuscular HGB Conc 33 g/dL N 31-36 Red Cell Distribution Width 13 % N 10.5-15 Platelet Count 203 10^3/uL N 150-450 Mean Platelet Volume 8 um3 N 7.4-10.4 Abs Neutrophils 3.0 10^3/uL N 1.5-7.7 Abs Lymphocytes 1.3 10^3/uL N 1.0-4.8 Abs Monocytes 0.5 10^3/uL N 0-0.8 Abs Eosinophils 0 10^3/uL N 0-0.6 Abs Basophils 0.1 10^3/uL N 0-0.2 Abs Nucleated RBC 0 10^3/uL N Granulocyte % 61.0 % N 38-83 Lymphocyte % 27.0 % N 25-47 Monocyte % 9.9 % High 1-9 Eosinophil % 0.7 % N 0-6 Basophil % 1.4 % N 0-2 Nucleated Red Blood Cells % 0 N Type & Screen 01/10/2015 [facility] Patient Blood Type O Positive N [phone] Antibody Screen NEGATIVE N CBC Auto Diff 08/16/2014 [facility] White Blood Count 8.6 10^3/uL N 4.8-10.8 17 [phone] Red Blood Count 3.96 10^6/uL Low 4.0-5.4 Hemoglobin 12.6 g/dL N 12.0-16.0 Hematocrit 39 % N 35-47 Mean Corpuscular Volume 97 fL N 80-97 Mean Corpuscular Hemoglobin 32 pg High 27-31 Mean Corpuscular HGB Conc 33 g/dL N 31-36 Red Cell Distribution Width 13 % N 10.5-15 Platelet Count 236 10^3/uL N 150-450 Mean Platelet Volume 9 um3 N 7.4-10.4 Abs Neutrophils 6.5 10^3/uL N 1.5-7.7 Abs Lymphocytes 1.5 10^3/uL N 1.0-4.8 Abs Monocytes 0.5 10^3/uL N 0-0.8 Abs Eosinophils 0 10^3/uL N 0-0.6 Abs Basophils 0.1 10^3/uL N 0-0.2 Abs Nucleated RBC 0 10^3/uL N Granulocyte % 75.6 % N 38-83 Lymphocyte % 17.7 % Low 25-47 Monocyte % 5.8 % N 1-9 Eosinophil % 0.3 % N 0-6 Basophil % 0.6 % N 0-2 Nucleated Red Blood Cells % 0 N Type & Screen 08/16/2014 [facility] Patient Blood Type O Positive N [phone] Antibody Screen NEGATIVE N CBC Auto Diff 07/21/2014 [facility] White Blood Count 4.3 10^3/uL Low 4.8-10.8 18 [phone] Red Blood Count 3.87 10^6/uL Low 4.0-5.4 Hemoglobin 12.5 g/dL N 12.0-16.0 Hematocrit 37 % N 35-47 Mean Corpuscular Volume 97 fL N 80-97 Mean Corpuscular Hemoglobin 32 pg High 27-31 Mean Corpuscular HGB Conc 33 g/dL N 31-36 Red Cell Distribution Width 14 % N 10.5-15 Platelet Count 207 10^3/uL N 150-450 Mean Platelet Volume 9 um3 N 7.4-10.4 Abs Neutrophils 2.4 10^3/uL N 1.5-7.7 Abs Lymphocytes 1.3 10^3/uL N 1.0-4.8 Abs Monocytes 0.5 10^3/uL N 0-0.8 Abs Eosinophils 0.1 10^3/uL N 0-0.6 Abs Basophils 0.1 10^3/uL N 0-0.2 Abs Nucleated RBC 0 10^3/uL N Granulocyte % 56.3 % N 38-83 Lymphocyte % 29.6 % N 25-47 Monocyte % 10.8 % High 1-9 Eosinophil % 1.8 % N 0-6 Basophil % 1.5 % N 0-2 Nucleated Red Blood Cells % 0.1 N Comp Metabolic Panel 07/21/2014 [facility] Sodium 138 mmol/L N 133- 145 [phone] Potassium 4.0 mmol/L N 3.5-5.0 Chloride 104 mmol/L N 101-111 Co2 Carbon Dioxide 32 mmol/L N 22-32 Anion Gap 2 mmol/L N 2-11 Glucose 90 mg/dL N 70-100 Blood Urea Nitrogen 10 mg/dL N 6-24 Creatinine 0.69 mg/dL N 0.51-0.95 BUN/Creatinine Ratio 14.5 N 8-20 Calcium 9.1 mg/dL N 8.6-10.3 Total Protein 6.7 g/dL N 6.4-8.9 Albumin 4.3 g/dL N 3.2-5.2 Globulin 2.4 g/dL N 2-4 Albumin/Globulin Ratio 1.8 N 1-3 Total Bilirubin 0.50 mg/dL N 0.2-1.0 Alkaline Phosphatase 65 U/L N 34-104 Alt 11 U/L N 7-52 Ast 16 U/L N 13-39 Egfr Non- 86.2 N >60 Egfr 110.9 N >60 19 Lipid Profile (Trig/Chol/HDL) 07/21/2014 [facility] Triglycerides 66 mg /dL N 20 [phone] Cholesterol 199 mg/dL N 21 HDL Cholesterol 61.8 mg/dL N 22 LDL Cholesterol 124 mg/dL N 23 Laboratory test finding 06/25/2014 In House Wet Prep see result notes 24 Javier see result notes Ua Inhouse 06/25/2013 In House Ua Glucose - Ua Bilirubin - Ua Ketones - Ua Specific Gatzke 1.005 Ua Blood - Ua PH 6.0 Ua Protein - Ua Urobilinogen - Ua Nitrite - Ua Leukocytes - CBC Auto Diff 09/12/2012 [facility] White Blood Count 7.0 10^3/uL 4.8-10.8 [phone] Red Blood Count 3.94 10^6/uL Low 4.0-5.4 Hemoglobin 12.7 g/dL 12.0-16.0 Hematocrit 37 % 35-47 Mean Corpuscular Volume 95 fL 80-97 Mean Corpuscular Hemoglobin 32 pg High 27-31 Mean Corpuscular HGB Conc 34 g/dL 31-36 Red Cell Distribution Width 13 % 10.5-15 Platelet Count 233 10^3/uL 150-450 Mean Platelet Volume 9 um3 7.4-10.4 Abs Neutrophils 5.1 10^3/uL 1.5-7.7 Abs Lymphocytes 1.4 10^3/uL 1.0-4.8 Abs Monocytes 0.4 10^3/uL 0-0.8 Abs Eosinophils 0 10^3/uL 0-0.6 Abs Basophils 0 10^3/uL 0-0.2 Abs Nucleated RBC 0 10^3/uL Granulocyte % 72.8 % 38-83 Lymphocyte % 19.7 % Low 25-47 Monocyte % 6.3 % 1-9 Eosinophil % 0.5 % 0-6 Basophil % 0.7 % 0-2 Nucleated Red Blood Cells % 0 Ua Inhouse 09/12/2012 In House Ua Glucose - Ua Bilirubin - Ua Ketones - Ua Specific Gatzke 1.005 Ua Blood - Ua PH 7.5 Ua Protein - Ua Urobilinogen - Ua Nitrite - Ua Leukocytes - Xray 06/30/2012 [facility] [place] X-Ray, Chest, 2 wnl, rev Views w/Dr Villa Laboratory test 04/21/2012 [facility] Cytology RUN DATE: finding [phone] 04/22/ <SEE NOTE> CBC Auto Diff 04/16/2012 [facility] White Blood 4.0 10^3/uL Low 4.8- 10. [phone] Count 8 Red Blood Count 3.61 10^6/uL Low 4.0-5.4 Hemoglobin 11.9 g/dL Low 12.0-16.0 Hematocrit 35 % 35-47 Mean Corpuscular Volume 97 fL 80-97 Mean Corpuscular Hemoglobin 33 pg High 27-31 Mean Corpuscular HGB Conc 34 g/dL 31-36 Red Cell Distribution Width 13 % 10.5-15 Platelet Count 212 10^3/uL 150-450 Mean Platelet Volume 9 um3 7.4-10.4 Abs Neutrophils 2.4 10^3/uL 1.5-7.7 Abs Lymphocytes 1.2 10^3/uL 1.0-4.8 Abs Monocytes 0.3 10^3/uL 0-0.8 Abs Eosinophils 0.1 10^3/uL 0-0.6 Abs Basophils 0.1 10^3/uL 0-0.2 Abs Nucleated RBC 0 10^3/uL Granulocyte % 58.8 % 38-83 Lymphocyte % 30.0 % 25-47 Monocyte % 8.1 % 1-9 Eosinophil % 1.7 % 0-6 Basophil % 1.4 % 0-2 Nucleated Red Blood Cells % 0 Comp Metabolic Panel 04/16/2012 [facility] Sodium 137 mmol/L 133- 145 [phone] Potassium 4.3 mmol/L 3.5-5.0 Chloride 104 mmol/L 101-111 Co2 Carbon Dioxide 28.0 mmol/L 22-32 Anion Gap 5.0 mmol/L 2-11 Glucose 88 mg/dL 70-100 Blood Urea Nitrogen 11 mg/dL 6-24 Creatinine 0.60 mg/dL 0.50-1.40 BUN/Creatinine Ratio 18.3 8-20 Calcium 8.9 mg/dL 8.1-9.9 Total Protein 6.1 GM/DL Low 6.2-8.1 Albumin 3.8 GM/DL 3.2-5.2 Globulin 2.3 GM/DL 2-4 Albumin/Globulin Ratio 1.7 1-3 Total Bilirubin 0.5 mg/dL 0.4-1.5 Alkaline Phosphatase 73 U/L 30-110 Alt 15 U/L 14-54 Ast 20 U/L 12-42 Egfr Non- 102.0 >60 Egfr 131.1 >60 26 Lipid Profile 04/16/2012 [facility] Triglycerides 78 mg/dL 40-200 (Trig/Chol/HDL) [phone] Cholesterol 170 mg/dL Less than 200 HDL Cholesterol 52 mg/dL 40-60 27 Cholesterol/HDL Ratio 3.3 AVERAGE 1-4.44 LDL Cholesterol 102.4 mg/dL High Less Than 100 28 Laboratory test 04/16/2012 [facility] TSH (Thyroid 1.82 MIU/ML 0.34- 5.60 finding [phone] Stimulating Horm) Lipid Profile 08/16/2010 [facility] Triglyceride 61 mg/dL 40-200 (Trig/Chol/HDL) [phone] Cholesterol 200 mg/dL Less Than 200 29 High Density Lipoprotein 58 mg/dL 40-60 30 Cholesterol/HDL Ratio 3.45 AVERAGE 1-4.44 Low Density Lipoprotein 130 mg/dL High Less Than 100 31 Throat-Beta Strept 06/10/2010 [facility] Throat-Beta Strep NF 32 [phone] Culture Laboratory test 01/16/2010 [facility] Cytology --------- 33 finding [phone] ------- <SEE NOTE> Lipid Profile 01/12/2010 [facility] Triglyceride 90 mg/dL 40-200 (Trig/Chol/HDL) [phone] Cholesterol 203 mg/dL High Less Than 200 34 High Density Lipoprotein 47 mg/dL 40-60 35 Cholesterol/HDL Ratio 4.32 AVERAGE 1-4.44 Low Density Lipoprotein 138 mg/dL High Less Than 100 36 Comp Metabolic Panel 01/12/2010 [facility] Sodium 140 mmol/L 135- 145 [phone] Potassium 4.0 mmol/L 3.5-5.0 Chloride 105 mmol/L 101-111 Co2 (Carbon Dioxide) 30.0 mmol/L 22-32 Anion Gap 5.0 mmol/L 2-11 37 Glucose 89 mg/dL 70-100 38 BUN 10 mg/dL 6-24 Creatinine 0.60 mg/dL 0.50-1.40 One Over Creatinine 1.60 BUN/Creatinine Ratio 16.7 8-20 Calcium 9.2 mg/dL 8.1-9.9 39 Total Protein 6.1 GM/DL Low 6.2-8.1 Albumin 3.9 GM/DL 3.6-5.4 Globulin 2.2 GM/DL 2-4 Albumin/Globulin Ratio 1.8 1-3 Bilirubin Total 0.4 mg/dL 0.4-1.5 40 Alkaline Phosphatase 74 U/L 30-110 Alt (SGPT) 16 U/L 14-54 Ast (Sgot) 19 U/L 12-42 eGFR Non- 109.1 > 60 eGFR 132.0 > 60 41 CBC With Electronic 01/12/2010 [facility] White Blood 4.7 CUMM Low 4.8-10.8 Diff [phone] Count Red Cell Count 3.67 CUMM Low 4.2-5.4 Hemoglobin 11.8 g/dL Low 12.0-16.0 Hematocrit 35 % 35-47 Mean Corpuscular Volume 94 um3 79-97 Mean Corpuscular Hemoglob 32 pg High 27-31 Mean Corpuscular HGB Cone 34 g/dL 32-36 Redcell Distribution WDTH 14 % 10.5-15 Platelet Count 256 CUMM 150-450 Mean Platelet Volume 7.6 um3 7.4-10.4 Gran % 59.8 % 38-83 Lymph % 30.2 % 25-47 Mononuclear % 8.3 % 1-9 Eosinophil % 0.9 % 0-6 Basophil % 0.8 % 0-2 Abs Lymphs 1.4 1.0-4.8 Abs Mononuclear 0.4 0-0.8 Absolute Neutrophil Count 2.8 1.5-7.7 Abs Eosinophils 0 0-0.6 Abs Basophils 0 0-0.2 Laboratory test 08/03/2008 [facility] Ferritin 63 NG/ML 11.0-307 finding [phone] CBC With Manual Diff 08/03/2008 [facility] White Blood Count 6.1 CUMM 4.8-10.8 [phone] Red Cell Count 3.80 CUMM Low 4.2-5.4 Hemoglobin 11.9 g/dL Low 12.0-16.0 Hematocrit 35 % 35-47 Mean Corpuscular Volume 91 um3 79-97 Mean Corpuscular Hemoglob 31 pg 27-31 Mean Corpuscular HGB Cone 35 g/dL 32-36 Redcell Distribution WDTH 14 % 10.5-15 Platelet Count 281 CUMM 150-450 Mean Platelet Volume 7.5 um3 7.4-10.4 Polysegmented Neutrophil 65 % 38-83 Band Neutrophil 1 % 0-8 Lymphocyte 25 % 25-47 Monocyte 7 % 0-13 Eosenophil 1 % 0-6 Atypical Lymph 1 % 0-6 Absolute Neutrophil Count 4.0 RBC Morphology NORMAL Lipid Profile 06/01/2008 [facility] Triglyceride 55 mg/dL 40-200 (Trig/Chol/HDL) [phone] Cholesterol 233 mg/dL High Less Than 200 42 High Density Lipoprotein 61.3 mg/dL High 40-60 43 Cholesterol/HDL Ratio 3.80 AVERAGE 1-4.44 Low Density Lipoprotein 161 mg/dL High Less Than 100 44 Comp Metabolic Panel 06/01/2008 [facility] Sodium 139 mmol/L 135- 145 [phone] Potassium 4.0 mmol/L 3.5-5.0 Chloride 102 mmol/L 101-111 Co2 (Carbon Dioxide) 30 mmol/L 22-32 Anion Gap 7 mmol/L 2-11 45 Glucose 85 mg/dL 70-100 46 BUN 13 mg/dL 6-24 Creatinine 0.56 mg/dL 0.50-1.40 One Over Creatinine 1.70 BUN/Creatinine Ratio 23.2 High 8-20 Calcium 9.2 mg/dL 8.1-9.9 47 Total Protein 7.3 GM/DL 6.2-8.1 Albumin 4.0 GM/DL 3.6-5.4 Globulin 3.3 GM/DL 2-4 Albumin/Globulin Ratio 1.2 1-3 Bilirubin Total 0.7 mg/dL 0.4-1.5 Alkaline Phosphatase 80 U/L 30-110 Alt (SGPT) 24 U/L 14-54 Ast (Sgot) 28 U/L 12-42 CBC With Manual 06/01/2008 [facility] White Blood Count 4.4 CUMM Low 4.8-10.8 Diff [phone] Red Cell Count 3.67 CUMM Low 4.2-5.4 Hemoglobin 11.6 g/dL Low 12.0-16.0 Hematocrit 34 % Low 35-47 Mean Corpuscular Volume 92 um3 79-97 Mean Corpuscular Hemoglob 32 pg High 27-31 Mean Corpuscular HGB Cone 34 g/dL 32-36 Redcell Distribution WDTH 14 % 10.5-15 Platelet Count 276 CUMM 150-450 Mean Platelet Volume 8.5 um3 7.4-10.4 Polysegmented Neutrophil 64 % 38-83 Band Neutrophil 1 % 0-8 Lymphocyte 27 % 25-47 Monocyte 5 % 0-13 Basophil 1 % 0-2 Atypical Lymph 2 % 0-6 Absolute Neutrophil Count 2.8 Hypochromasia SLIGHT Laboratory test 05/09/2008 [facility] Monospot Stat NEGATIVE Negative finding [phone] CBC With Manual 05/09/2008 [facility] White Blood 11.4 CUMM High 4.8- 10.8 Diff Stat [phone] Count Red Cell Count 4.04 CUMM Low 4.2-5.4 Hemoglobin 12.9 g/dL 12.0-16.0 Hematocrit 36 % 35-47 Mean Corpuscular Volume 90 um3 79-97 Mean Corpuscular Hemoglob 32 pg High 27-31 Mean Corpuscular HGB Cone 35 g/dL 32-36 Redcell Distribution WDTH 13 % 10.5-15 Platelet Count 272 CUMM 150-450 Mean Platelet Volume 7.1 um3 Low 7.4-10.4 Polysegmented Neutrophil 88 % High 38-83 Lymphocyte 9 % Low 25-47 Monocyte 2 % 0-13 Eosenophil 1 % 0-6 Absolute Neutrophil Count 10.0 RBC Morphology NORMAL Laboratory test finding 05/08/2008 In House Culture Throat Rapid Screen - Culture Throat + Laboratory 08/28/2006 [facility] Cytology 48 test finding [phone] <SEE NOTE> Surgical 05/07/2006 [facility] Surgical 49 Pathology [phone] Pathology <SEE NOTE> Laboratory 04/16/2006 In House Urine Culture pos 10/ growth test finding Laboratory 04/15/2006 In House Urine loaded rbc,20-30wbc Low 20- test finding Microscopic 30e Inhouse pi Ua Inhouse 04/15/2006 In House Ua Glucose - Ua Bilirubin - Ua Ketones - Ua Specific Gatzke 1.005 Ua Blood +++ Ua PH 8.5 Ua Protein ++ Ua Urobilinogen - Ua Nitrite - Ua Leukocytes - Comp Metabolic 03/20/2006 [facility] One Over Creatinine 1.42 Panel [address] [email or web address] [address] [phone] Anion Gap 3.2 mmol/L 2-11 50 Albumin/Globulin Ratio 1.5 1-3 Albumin 4.1 GM/DL 3.6-5.4 Alkaline Phosphatase 77 U/L 30-110 Alt (SGPT) 20 U/L 14-54 Ast (Sgot) 24 U/L 12-42 BUN 11 mg/dL 6-24 Calcium 9.0 mg/dL 8.7-10.2 Chloride 107.7 mmol/L 101-111 Co2 (Carbon Dioxide) 28.8 mmol/L 22-32 Globulin 2.7 GM/DL 2-4 Glucose 91 mg/dL 70-105 Potassium 4.1 mmol/L 3.5-5.0 Sodium 139.7 mmol/L 135-145 Bilirubin Total 0.4 mg/dL 0.4-1.5 Total Protein 6.8 GM/DL 6.2-8.1 BUN/Creatinine Ratio 15.7 8-20 Creatinine 0.7 mg/dL 0.5-1.4 CBC With Manual Diff 03/20/2006 [facility] RBC Morphology NORMAL [address] [place] [address] [phone] White Blood Count 4.7 CUMM Low 4.8-10.8 Hematocrit 37 % 35-47 Hemoglobin 12.2 g/dL 12.0-16.0 Mean Corpuscular HGB Cone 34 g/dL 32-36 Mean Corpuscular Hemoglob 31 pg 27-31 Mean Corpuscular Volume 94 um3 79-97 Mean Platelet Volume 8.5 um3 7.4-10.4 Platelet Count 298 CUMM 150-450 Polysegmented Neutrophil 65 % 38-83 Red Cell Count 3.89 CUMM Low 4.2-5.4 Redcell Distribution WDTH 13 % 10.5-15 Absolute Neutrophil Count 3.0 Basophil 2 % 0-2 Lymphocyte 21 % 5-47 Monocyte 12 % 0-13 Ua Inhouse 03/19/2006 In House Ua Glucose - Ua Bilirubin - Ua Ketones - Ua Specific Gatzke 1.010 Ua Blood - Ua PH 6.0 Ua Protein - Ua Urobilinogen - Ua Nitrite - Ua Leukocytes - Ua Inhouse 01/16/2005 In House Ua Glucose NEG Ua Bilirubin NEG Ua Ketones NEG Ua Specific Gatzke 1.010 Ua Blood NEG Ua PH 6.0 Ua Protein NEG Ua Urobilinogen NEG Ua Nitrite NEG Ua Leukocytes NEG Laboratory test 09/08/2004 [facility] Rheumatoid < 20.0 Less Than finding [phone] Factor IU/mL 20 Comp Metabolic 09/08/2004 [facility] Anion Gap 6.0 mmol/L 2-11 51 Panel [phone] Albumin/Globulin Ratio 1.3 1-3 Albumin 4.0 GM/DL 3.6-5.4 Alkaline Phosphatase 74 U/L 30-110 Alt (SGPT) 20 U/L 14-54 Ast (Sgot) 26 U/L 12-42 BUN 9 mg/dL 6-24 Calcium 9.7 mg/dL 8.7-10.2 Chloride 99 mmol/L Low 101-111 Co2 (Carbon Dioxide) 31.0 mmol/L 22-32 Creatinine 0.7 mg/dL 0.5-1.4 Globulin 3.0 GM/DL 2-4 Glucose 89 mg/dL 70-105 Potassium 4.0 mmol/L 3.5-5.0 Sodium 136 mmol/L 135-145 Bilirubin Total 0.6 mg/dL 0.4-1.5 Total Protein 7.0 GM/DL 6.2-8.1 BUN/Creatinine Ratio 12.9 8-20 CBC With Manual Diff 09/08/2004 [facility] RBC Morphology NORMAL [phone] White Blood Count 4.8 CUMM 4.8-10.8 Hematocrit 36 % 35-47 Hemoglobin 12.5 g/dL 12.0-16.0 Mean Corpuscular HGB Cone 34 g/dL 32-36 Mean Corpuscular Hemoglob 32 pg High 27-31 Mean Corpuscular Volume 93 um3 79-97 Mean Platelet Volume 9.0 um3 7.4-10.4 Platelet Count 280 CUMM 150-450 Polysegmented Neutrophil 64 % 38-83 Red Cell Count 3.92 CUMM Low 4.2-5.4 Redcell Distribution WDTH 14 % 10.5-15 Lymphocyte 30 % 5-47 Monocyte 6 % 0-13 Lipid Profile 09/08/2004 [facility] Cholesterol 209 mg/dL High Less Than 52 (Trig/Chol/HDL) [phone] 200 Triglyceride 85 mg/dL 40-200 High Density Lipoprotein 51 mg/dL 40-60 Low Density Lipoprotein 141 mg/dL High Less Than 100 53 Cholesterol/HDL Ratio 4.10 AVERAGE 1-4.44 Ua Inhouse 06/16/2004 In House Ua Glucose NEG Ua Bilirubin NEG Ua Ketones NEG Ua Specific Gatzke 1.010 Ua Blood NEG Ua PH 6.5 Ua Protein TRACE Ua Urobilinogen NEG Ua Nitrite NEG Ua Leukocytes NEG Culture Urine Inhouse 06/14/2004 In House Presumptive pos Klebsiella pos Colonies 10 to the 5th Xray 06/14/2004 [facility] Medicine X-ray, Chest, 2 BRONCHOPNEUMONIA 54 Views Ua Inhouse 06/13/2004 In House Ua Glucose neg Ua Bilirubin neg Ua Ketones neg Ua Specific Gatzke 1.005 Ua Blood +++ Ua PH 5.0 Ua Protein neg Ua Urobilinogen neg Ua Nitrite neg Ua Leukocytes +++ Paty (Antinuclear 02/28/2004 [facility] Antinuclear AB 1:160 Abnormal Antibodies) [phone] Antinuclear AB POSITIVE Abnormal Negative Paty Pattern SPECKLED Abnormal Lipid Profile 02/28/2004 [facility] Cholesterol 223 mg/dL High Less Than 55 (Trig/Chol/HDL) [phone] 200 Triglyceride 102 mg/dL 40-200 High Density Lipoprotein 58 mg/dL 40-60 Low Density Lipoprotein 145 mg/dL High Less Than 100 56 Cholesterol/HDL Ratio 3.84 AVERAGE 1-4.44 Comp Metabolic Panel 02/28/2004 [facility] Anion Gap 7.0 mmol/L 2- 11 57 [phone] Albumin/Globulin Ratio 1.4 1-3 Albumin 3.9 GM/DL 3.6-5.4 Alkaline Phosphatase 94 U/L 30-110 Alt (SGPT) 23 U/L 14-54 Ast (Sgot) 27 U/L 12-42 BUN 10 mg/dL 6-24 Calcium 9.4 mg/dL 8.7-10.2 Chloride 101 mmol/L 101-111 Co2 (Carbon Dioxide) 29.0 mmol/L 22-32 Creatinine 0.8 mg/dL 0.5-1.4 Globulin 2.7 GM/DL 2-4 Glucose 97 mg/dL 70-105 Potassium 3.7 mmol/L 3.5-5.0 Sodium 137 mmol/L 135-145 Bilirubin Total 0.5 mg/dL 0.4-1.5 Total Protein 6.6 GM/DL 6.2-8.1 BUN/Creatinine Ratio 12.5 8-20 Laboratory test 02/28/2004 [facility] TSH 2.17 MIU/ML 0.34-5.60 finding [phone] CBC With Electronic 02/28/2004 [facility] White Blood 4.9 CUMM 4.8- 10.8 Diff [phone] Count Abs Basophils 0 0-0.2 Abs Eosinophils 0 0-0.6 Abs Grans 2.9 1.5-7.7 Abs Lymphs 1.5 1.0-4.8 Abs Mononuclear 0.4 0-0.8 Basophil % 0.7 % 0-2 Hematocrit 36 % 35-47 Hemoglobin 12.1 g/dL 12.0-16.0 Eosinophil % 0.8 % 0-6 Gran % 59.0 % 38-83 Lymph % 30.5 % 20-45 Mean Corpuscular HGB Cone 34 g/dL 32-36 Mean Corpuscular Hemoglob 31 pg 27-31 Mean Corpuscular Volume 92 um3 79-97 Mean Platelet Volume 8.5 um3 7.4-10.4 Mononuclear % 9.0 % 1-9 Platelet Count 306 CUMM 150-450 Red Cell Count 3.87 CUMM Low 4.2-5.4 Redcell Distribution WDTH 14 % 10.5-15 Xray 01/04/2004 [facility] Mammography, Bilateral NEGATIVE [place] [address] [phone] 1 Because ethnic data is not always readily available, this report includes an eGFR for both -Americans and non- Americans. The National Kidney Disease Education Program (NKDEP) does not endorse the use of the MDRD equation for patients that are not between the ages of 18 and 70, are , have extremes of body size, muscle mass, or nutritional status, or are non- or non-. According to the National Kidney Foundation, irrespective of diagnosis, the stage of the disease is based on the level of kidney function: Stage Description GFR(mL/min/1.73 m(2)) 1 Kidney damage with normal or decreased GFR 90 2 Kidney damage with mild decrease in GFR 60-89 3 Moderate decrease in GFR 30-59 4 Severe decrease in GFR 15-29 5 Kidney failure <15 (or dialysis) 2 Desirable: <150 Borderline High: 150-199 High: 200-499 Very High: >500 3 Desirable: <200 Borderline High: 200-239 High: >239 4 Low: <40 Desirable: 40-60 High: >60 5 Desirable: <100 Near Optimal: 100-129 Borderline High: 130-159 High: 160-189 Very High: >189 6 SEE RESULT BELOW Name: SHIRA MATOS DOB: [address]: Nadine CALVO Acct: [id number] Unit: [id number] AGE: 66 Location: [facility] Re09/17/17 SEX: F Status: REG REF SPEC: [id number] CJ: 09/17/17-[address]: Nadine CALVO REQ: [id number] RECD: 09/17/17 STATUS: SOUT _ ORDERED: TP IMAGE ANALYS, HPV/Thin Prep COMMENTS: [id number] Negative for Intraepithelial lesion or Malignancy A. Ectocervical/Endocervical Specimen Adequacy: Satisfactory of evaluation Transformation zone component identified Patient Information: HPV: High risk HPV RNA testing regardless of pap results. Actual Specimen Date: 09/17/17 LMP If Unknown: 1996 Hysterectomy?: Y Previous Abnormal Pap Smears?:N Date Time Test Result Flag (u) Normal Range 09/17/17 1200 @ HPV RNA Negative Negative @ @ The high-risk HPV types detected by the assay include: 16, @ 18, 31, 33, 35, 39, 45, 51, 52, 56, 58, 59, 66, and 68. Signed by and Reported on: Kun ADELIA Winters (ASC) 1425 This Pap test was evaluated with the assistance of the ThinPrep Test Imaging System. Due to cytologic findings at the machine coremaker microscope, comprehensive manual rescreening by a Oil Expeller Operator may be required. The Pap Smear is a screening test designed to aid in the detection of premalignant and malignant conditions of the uterine cervix. It is not a diagnostic procedure and should not be used as the sole means of detecting cervical cancer. Both false- positive and false- negative reports do occur. Depending on your risk status, a Pap smear should be obtained and evaluated every 1-3 years. END OF REPORT DEPARTMENT OF PATHOLOGY, [address] [place] [address] Sravan Lund M.D. Director [facility] # [id number] 7 void, clear, yellow 8 SEE RESULT BELOW Name: SHIRA MATOS : [address]: Nadine CALVO Acct: [id number] Unit: [id number] AGE: 66 Location: [facility] Re03/08/17 SEX: F Status: REG REF SPEC: [id number] CJ: 03/08/17 [facility] DR: Nadine CALVO REQ: [id number] RECD: 03/08/17 STATUS: COMP _ SOURCE: STOOL SPDESC: ORDERED: Occult Bl, Carlos Hernandez PCR, Stool Culture Procedure Result Reported Site Stool Culture Final 03/10/17- 0943 ML Result No enteric pathogens isolated Testing for Salmonella, Shigella, Aeromonas, Plesiomonas, Yersinia and Campylobacter are included in a Stool Culture. Vibrio spp not routinely tested for in a stool culture. If testing is desired, please request specifically when placing test order. Sensitivities not routinely performed on stool isolates, as antibiotics may prolong the carriage rate of bacteria. Please contact the microbiology lab if sensitivities are required. Stool Specimen Description Final 03/08/17- 1606 ML Stool Color Brown Stool Form Nonformed Stool Consistency Soft Shiga Toxin 1 2 Final 03/11/17- 1146 ML Organism 1 Negative Shiga Toxin 1 2 Immunochromatographic Assay CONTINUED ON NEXT PAGE * ML=Testing performed at Main Lab DEPARTMENT OF PATHOLOGY, [address] [place] [address] Sravan Lund M.D. Director [facility] # [id number] Patient: SHIRA MATOS [id number] (Continued) Specimen: [id number] Collected: 03/08/17 Received: 03/08/17 (Continued) Procedure Result Reported Site Shiga Toxin 1 2 Final (continued) 03/11/17- 1146 C. difficile PCR Final 03/08/17- 1700 ML Organism 1 027 Presumptive NEGATIVE Organism 2 Toxigenic C.diff NEGATIVE Stool Occult Blood (1) Final 03/08/17- 1606 ML Stool Occult Blood Negative Collection Date (1) 03/08/17 * ML - MAIN LAB (PSC1) . END OF REPORT * ML=Testing performed at Main Lab DEPARTMENT OF PATHOLOGY, [address] [place] [address] Sravan Lund M.D. Director [facility] # [id number] 9 [id number] 10 SEE RESULT BELOW Name: SHIRA MATOS : [address]: Kishan Almonte MD Acct: [id number] Unit: [id number] AGE: 65 Location: [facility] Re07/25/16 SEX: F Status: DEP REF SPEC: CJ: 07/25/16- SUBM DR: Kishan Almonte MD REQ: [id number] RECD: 07/25/16 STATUS: JOSE FITZPATRICK DR: Tari Bell MD _ ORDERED: LEVEL IV/3 COMMENTS: [id number] FINAL DIAGNOSIS 1. Colon, mid transverse, biopsy: -- Hyperplastic polyp. 2. Colon, distal transverse, biopsy: -- Hyperplastic polyp. 3. Colon, mid sigmoid, biopsy: -- Hyperplastic polyp. CLINICAL HISTORY Regular with no blood; bloating. Family history - grandmother 85, colon; father 57 myocardial infarction, mother 89, tongue POST-OPERATIVE DIAGNOSIS Colonoscopy to cecum with ease, excellent prep - many ??? during case. Conclusions/Plan: Three nodules GROSS DESCRIPTION 1. The specimen is received in formalin labeled, Biopsy Mid Transverse Colon Polyp, and consists of two oliver-pink irregular to polypoid soft tissue fragments measuring 0.3 x 0.2 x 0.1 cm and 0.3 x 0.3 x 0.2 cm, which are submitted entirely in one cassette. 2. The specimen is received in formalin labeled, Biopsy Distal Transverse Colon Polyp, and consists of a 0.7 x 0.6 x 0.1 cm aggregate of oliver-pink irregular soft tissue fragments, which is submitted entirely in one cassette. 3. The specimen is received in formalin labeled, Biopsy Mid Sigmoid Colon Polyp, and consists of two oliver-pink irregular soft tissue fragments measuring 0.3 x 0.3 x 0.2 cm and CONTINUED ON NEXT PAGE * ML=Testing performed at Main Lab DEPARTMENT OF PATHOLOGY, [address] [place] [address] Sravan Lund M.D. Director [facility] # [id number] RUN DATE: 07/26/16 [facility] LAB LIVE PAGE 2 Patient: SHIRA MATOS [id number] (Continued) GROSS DESCRIPTION (Continued) GROSS DESCRIPTION (Continued) 0.5 x 0.3 x 0.1 cm, which are submitted entirely in one cassette. Signed (signature on file) Kasia Peck MD 02/03 1538 END OF REPORT * ML=Testing performed at Main Lab DEPARTMENT OF PATHOLOGY, [address] [place] [address] Sravan Lund M.D. Director [facility] # [id number] 11 void, vishal padilla 12 Because ethnic data is not always readily available, this report includes an eGFR for both -Americans and non- Americans. The National Kidney Disease Education Program (NKDEP) does not endorse the use of the MDRD equation for patients that are not between the ages of 18 and 70, are , have extremes of body size, muscle mass, or nutritional status, or are non- or non-. According to the National Kid[employer] Foundation, irrespective of diagnosis, the stage of the disease is based on the level of kidney function: Stage Description GFR(mL/min/1.73 m(2)) 1 Kidney damage with normal or decreased GFR 90 2 Kidney damage with mild decrease in GFR 60-89 3 Moderate decrease in GFR 30-59 4 Severe decrease in GFR 15-29 5 Kidney failure <15 (or dialysis) 13 SEE RESULT BELOW Name: SHIRA MATOS : [address]: Negrita Mustafa Acct: [id number] Unit: [id number] AGE: 64 Location: [facility] Re01/23/15 SEX: F Status: DEP ER SPEC: [id number] CJ: 01/23/15-1610 [facility] DR: June Olson DO REQ: [id number] RECD: 01/24/15352 STATUS: SIMONA FITZPATRICK DR: Tari Bell MD _ SOURCE: CERVIX SPDESC: ORDERED: Genital Culture Procedure Result Verified Site Genital Culture Final 01/26/15- 0956 ML Organism 1 STREP GROUP B Quantity 1+ Susceptibility testing of penicillins and other B-lactams approved by FDA for treatment of Streptococcus pyogenes (Group A Strep) and Streptococcus agalactiae (Group B Strep) is not necessary for clinical purposes and need not be done routinely, since as with vancomycin, resistant strains have not been recognized. (CLSI X693-C05;p.66) Positive isolates will be saved for one week. Please call the Microbiology Laboratory if further susceptibility testing is needed. * ML - MAIN LAB ([facility]) . END OF REPORT * ML=Testing performed at Main Lab DEPARTMENT OF PATHOLOGY, [address] [place] [address] Sravan Lund M.D. Director [facility] # [id number] 14 SEE RESULT BELOW Name: SHIRA MATOS : [address]: Negrita Mustafa Acct: [id number] Unit: [id number] AGE: 64 Location: [facility] Re01/23/15 SEX: F Status: DEP ER SPEC: [id number] CJ: 01/23/15-1610 [facility] DR: June Olson DO REQ: [id number] RECD: 01/24/15812 STATUS: SIMONA FITZPATRICK DR: Tari Bell MD _ SOURCE: VAGINAL SPDESC: ORDERED: Royal,Yeast DNA Procedure Result Verified Site Gardnerella/Yeast: Vaginal DNA Final 01/25/15- 1226 ML Organism 1 Negative Mary Organism 2 Negative Gardnerella The presence of G. vaginalis, although suggestive, is not diagnostic for bacterial vaginosis. Results should be interpreted in conjuction with other clinical and laboratory data available. Women with vaginal discharge should be evaluated for risk factors of cervicitis and pelvic inflammatory disease, toxic shock syndrome (S.aureus), and if present, evaluated for organisms not included in this assay such as N. gonorrhoeae, C. trachomatis, Mobiluncus, Mycoplasma and/or Prevotella. Mixed infections may occur. The performance of this test on patient specimens collected during or immediately after antimicrobial therapy is unknown. The presence or absence of Mary species, or G. vaginalis cannot be used as a test for therapeutic success or failure. * ML - MAIN LAB ([facility]) . END OF REPORT * ML=Testing performed at Main Lab DEPARTMENT OF PATHOLOGY, [address] [place] [address] Sravan Lund M.D. Director [facility] # [id number] 15 SEE RESULT BELOW Name: MATOSSHIRA Villa : [address]: Negrita Mustafa Acct: [id number] Unit: [id number] AGE: 64 Location: [facility] Re01/23/15 SEX: F Status: DEP ER SPEC: [id number] CJ: 01/23/15-[address]: June Olson DO REQ: [id number] RECD: 01/24/15 STATUS: SIMONA FITZPATRICK DR: Tari Bell MD _ SOURCE: VAGINAL SPDESC: ORDERED: Royal,Yeast DNA, Trich DNA Procedure Result Verified Site Gardnerella/Yeast: Vaginal DNA Final 01/25/15- 1226 ML Organism 1 Negative Mary Organism 2 Negative Gardnerella The presence of G. vaginalis, although suggestive, is not diagnostic for bacterial vaginosis. Results should be interpreted in conjuction with other clinical and laboratory data available. Women with vaginal discharge should be evaluated for risk factors of cervicitis and pelvic inflammatory disease, toxic shock syndrome (S.aureus), and if present, evaluated for organisms not included in this assay such as N. gonorrhoeae, C. trachomatis, Mobiluncus, Mycoplasma and/or Prevotella. Mixed infections may occur. The performance of this test on patient specimens collected during or immediately after antimicrobial therapy is unknown. The presence or absence of Mary species, or G. vaginalis cannot be used as a test for therapeutic success or failure. Trichomonas: Vaginal DNA Probe Final 01/26/15- 1413 ML Organism 1 Negative Trichomonas CONTINUED ON NEXT PAGE * ML=Testing performed at Main Lab DEPARTMENT OF PATHOLOGY, [address] [place] [address] Sravan Lund M.D. Director [facility] # [id number] Patient: SHIRA MATOS [id number] (Continued) Specimen: [id number] Collected: 01/23/15-161 Received: 01/24/15 (Continued) Procedure Result Verified Site Trichomonas: Vaginal DNA Probe Final (continued) 01/26/15- 141 The presence or absence of T. vaginalis cannot be used as a test for therapeutic success or failure. * ML - MAIN LAB ([facility]) . END OF REPORT * ML=Testing performed at Main Lab DEPARTMENT OF PATHOLOGY, [facility] [employer] [place], [place] [address] Sravan Lund M.D. Director [facility] # [id number] 16 AA 01/17 17 AA 08/30 18 PT IS FASTING 19 Because ethnic data is not always readily available, this report includes an eGFR for both -Americans and non- Americans. The National Kidney Disease Education Program (NKDEP) does not endorse the use of the MDRD equation for patients that are not between the ages of 18 and 70, are , have extremes of body size, muscle mass, or nutritional status, or are non- or non-. According to the National Kidney Foundation, irrespective of diagnosis, the stage of the disease is based on the level of kidney function: Stage Description GFR(mL/min/1.73 m(2)) 1 Kidney damage with normal or decreased GFR 90 2 Kidney damage with mild decrease in GFR 60-89 3 Moderate decrease in GFR 30-59 4 Severe decrease in GFR 15-29 5 Kidney failure <15 (or dialysis) 20 Desirable <150 Borderline high 150-199 High 200-499 Very High >500 21 Desirable <200 Borderline high 200-239 High >239 22 Low <40 Desirable: 40-60 High: >60 23 Desirable <100 Near Optimal 100-129 Borderline high 130-159 High 160-189 Very High >189 24 Results: ph 5.5, (+) clue cell, (+) whiff. 25 RUN DATE: 04/22/12 [facility] LAB LIVE PAGE 1 RUN TIME: [address] [facility] [address] [place], [place] [address] Specimen Inquiry Name: SHIRA MATOS : [address]: Nadine Ceballos PA Acct: [id number] Unit: [id number] AGE: 61 Location: [facility] Re04/21/12 SEX: F Status: REG REF SPEC: [id number] CJ: 04/21/12-[address]: Nadine Ceballos PA REQ: [id number] RECD: 04/22/12 STATUS: SOUT _ ORDERED: IMAGE ANALYSIS Negative for Intraepithelial lesion or Malignancy A. Ectocervical/Endocervical Specimen Adequacy: Satisfactory of evaluation Transformation zone component cannot be definitely identified due to presence of atrophy or other hormonal changes Patient Information: HPV: Thin Layer Pap Test w/reflex to high risk HPV DNA testing when ASCUS Actual Specimen Date: 04/21/12 LMP If Unknown: 1996 Cautery: N IUD: N ?: N Post Menopausal?: Y Hysterectomy?: Y Lesion, grossly demonstrate: N Signed (signature on file) ADELIA Escobedo (ASCP) 04/22 1224 This Pap test was evaluated with the assistance of the [employer]ip Test Imaging System. Due to cytologic findings at the machine coremaker microscope, comprehensive manual rescreening by a Oil Expeller Operator may be required. The Pap Smear is a screening test designed to aid in the detection of premalignant and malignant conditions of the uterine cervix. It is not a diagnostic procedure and should not be used as the sole means of detecting cervical cancer. Both false- positive and false- negative reports do occur. Depending on your risk status, a Pap smear shoudl be obtained and evaluated every 1-3 years. END OF REPORT * ML=Testing performed at Main Lab DEPARTMENT OF PATHOLOGY, [address] [place] [address] Sravan Lund M.D. Director [facility] Permit #[id number] 26 Because ethnic data is not always readily available, this report includes an eGFR for both -Americans and non- Americans. The National Kidney Disease Education Program (NKDEP) does not endorse the use of the MDRD equation for patients that are not between the ages of 18 and 70, are , have extremes of body size, muscle mass, or nutritional status, or are non- or non-. According to the National Kidney Foundation, irrespective of diagnosis, the stage of the disease is based on the level of kidney function: Stage Description GFR(mL/min/1.73 m(2)) 1 Kidney damage with normal or decreased GFR 90 2 Kidney damage with mild decrease in GFR 60-89 3 Moderate decrease in GFR 30-59 4 Severe decrease in GFR 15-29 5 Kidney failure <15 (or dialysis) 27 HDL Interpretation: Undesirable: High Risk: Less than 40 MG/DL Desirable: Low Risk: Greater than 60 MG/DL 28 LDL Interpretation: Low Risk Optimal Level: LDL Less than 100 MG/DL Near or Above Optimal: LDL 100-129 MG/DL Borderline High Risk: LDL 130-159 MG/DL High Risk: LDL 160-189 MG/DL Very High Risk: LDL Greater than 189 MG/DL 29 CHOLESTEROL INTERPRETATION: Desirable: Less than 200 MG/DL Borderline-High Risk: 200-239 MG/DL High-Risk: 240 MG/DL and over 30 HDL INTERPRETATION: Undesirable: High Risk: Less than 40 MG/DL Desirable: Low Risk: Greater than 60 MG/DL 31 LDL INTERPRETATION: Low Risk Optimal Level: LDL Less than 100 MG/DL Near or Above Optimal: LDL 100-129 MG/DL Borderline High Risk: LDL 130-159 MG/DL High Risk: LDL 160-189 MG/DL Very High Risk: LDL Greater than 189 MG/DL 32 NEGATIVE FOR GROUP A BETA STREPTOCOCCUS 33 ---- RUN DATE: 01/17/10 [facility] NMI LIVE PAGE 1 RUN TIME: 1120 Specimen Inquiry RUN USER: INTERFACE -- Name: SHIRA MATOS Accpapito#: [id number] Status: REG REF Re01/16/10 Age/Sex: 59/F Unit#: [id number] Location: [facility] : [birth year] -- Specimen: [id number] Spec Date: 01/16/[address]: Nadine CALVO Spec Type: CYTOLOGY Received: 01/17/10-08 Copies to: SOURCE ECTOCERVICAL/ENDOCERVICAL Thin Prep with Reflex HPV Test PATIENT INFORMATION ACTUAL COLLECTION DATE: 01/16/10 ? No POST MENOPAUSAL? Yes HYSTERECTOMY? Yes PATIENT HISTORY: hysterectomy 1996 ADEQUACY OF SPECIMEN Satisfactory for evaluation * Transformation zone component not identified * DIAGNOSIS NEGATIVE FOR INTRAEPITHELIAL LESION OR MALIGNANCY * This Pap test was evaluated with the assistance of the ThinPrep Pap Test Imaging System. The Pap Smear is a screening test designed to aid in the detection of premalign ant and malignant conditions of the uterine cervix. It is not a diagnostic procedure a nd should not be used as the sole means of detecting cervical cancer. Both false- positiv e and false-negative reports do occur. Depending on your risk status, a Pap smear rand uld be obtained and evaluated every one to three years. Initial evaluation performed by Clayton WINTERS(ASC) 01/17/10 Final Interpretation electronically signed by: Clayton WINTERS(ASC) 01/17/10 1120 -- -- DEPARTMENT OF PATHOLOGY, [address] [place] [address] [facility] Permit #[id number] Sravan Lund M.D. Director Kiki Gillespie M.D. Traffic Agent Dir bean -- 34 CHOLESTEROL INTERPRETATION: Desirable: Less than 200 MG/DL Borderline-High Risk: 200-239 MG/DL High-Risk: 240 MG/DL and over 35 HDL INTERPRETATION: Undesirable: High Risk: Less than 40 MG/DL Desirable: Low Risk: Greater than 60 MG/DL 36 LDL INTERPRETATION: Low Risk Optimal Level: LDL Less than 100 MG/DL Near or Above Optimal: LDL 100-129 MG/DL Borderline High Risk: LDL 130-159 MG/DL High Risk: LDL 160-189 MG/DL Very High Risk: LDL Greater than 189 MG/DL 37 Anion gap measurement may be of limited value in the presence of any alkalosis, especially in a combined acid base disorder. . 38 Note change in reference range as of 01/08/08. The change was based on recommendations from the [place] [employer]. 39 Please note change in reference range effective 07 . 40 A metabolite of Naproxen, O-desmethylnaproxen, has been shown to interfere with the Jendrassik-Enrike method for measuring total bilirubin. Samples from patients who have taken Naproxen have shown spurious elevation in total bilirubin levels. 41 Because ethnic data is not always readily available, this report includes an eGFR for both -Americans and non- Americans. The National Kidney Disease Education Program (NKDEP) does not endorse the use of the MDRD equation for patients that are not between the ages of 18 and 70, are , have extremes of body size, muscle mass, or nutritional status, or are non- or non-. According to the National Kidney Foundation, irrespective of diagnosis, the stage of the disease is based on the level of kidney function: Stage Description GFR(mL/min/1.73 m(2)) 1 Kidney damage with normal or decreased GFR 90 2 Kidney damage with mild decrease in GFR 60-89 3 Moderate decrease in GFR 30-59 4 Severe decrease in GFR 15-29 5 Kidney failure <15 (or dialysis) 42 CHOLESTEROL INTERPRETATION: Desirable: Less than 200 MG/DL Borderline-High Risk: 200-239 MG/DL High-Risk: 240 MG/DL and over 43 HDL INTERPRETATION: Undesirable: High Risk: Less than 40 MG/DL Desirable: Low Risk: Greater than 60 MG/DL 44 LDL INTERPRETATION: Low Risk Optimal Level: LDL Less than 100 MG/DL Near or Above Optimal: LDL 100-129 MG/DL Borderline High Risk: LDL 130-159 MG/DL High Risk: LDL 160-189 MG/DL Very High Risk: LDL Greater than 189 MG/DL 45 Anion gap measurement may be of limited value in the presence of any alkalosis, especially in a combined acid base disorder. . 46 Note change in reference range as of 01/08/08. The change was based on recommendations from the [place] [employer]. 47 Please note change in reference range effective 07 . 48 ---- RUN DATE: 08/30/06 [facility] NMI LIVE PAGE 1 RUN TIME: 1344 Specimen Inquiry RUN USER: INTERFACE [id number] SHIRA MATOS 55/F <REG REF 08/27> ([id number]) RSP Heather Garcia MD -- Specimen: [id number] Spec Date: 08/27/[address]: Heather flores MD Spec Type: CYTOLOGY Received: 08/29/06-1002 Copies to: SOURCE ECTOCERVICAL/ENDOCERVICAL Thin Prep with Reflex HPV Test PATIENT INFORMATION ACTUAL COLLECTION DATE: 08/27/06 ? NO POST MENOPAUSAL? Yes HYSTERECTOMY? Yes PREVIOUS ABNORMAL PAP SMEARS No PATIENT HISTORY: Last menstrual period 1996 ADEQUACY OF SPECIMEN Satisfactory for evaluation * Transformation zone component identified * DIAGNOSIS NEGATIVE FOR INTRAEPITHELIAL LESION OR MALIGNANCY * This Pap test was evaluated with the assistance of the ThinPrep Pap Test Imaging System. The Pap Smear is a screening test designed to aid in the detection of premalign ant and malignant conditions of the uterine cervix. It is not a diagnostic procedure a nd should not be used as the sole means of detecting cervical cancer. Both false- positive and false-negative reports do occur. Depending on your risk status, a Pap smear rand uld be obtained and evaluated every one to three years. Initial evaluation performed by Clayton WINTERS(ASCP) 08/30/06 Final Interpretation electronically signed by: Clayton WINTERS(ASCP) 08/30/06 -- -- DEPARTMENT OF PATHOLOGY, [address] [place] [address] [facility] Permit #[id number] Tari Cerna II, M.D. Director Sravan Lund M.D. Traffic Agent Ashley irector -- 49 ---- RUN DATE: 05/08/06 [facility] NMI LIVE PAGE 1 RUN TIME: 1207 Specimen Inquiry RUN USER: INTERFACE [id number] SHIRA MATOS 55/F <REG REF 05/07> ([id number]) HSEY Almonte MD, Nick edwards -- Specimen: [id number] [id number] Spec Date: 05/07/[address]: Kishan de la cruz MD Spec Type: SURGICAL P Received: 05/07/06-1214 Copies to: Heather Garcia MD SPECIMEN 1) CECAL POLYP 2) PROXIMAL TRANSVERSE COLON POLYP HISTORY CLINICAL INFORMATION: Complains of left lower quadrant pain. History of polyps and positive family history of colon carcinoma. GROSS DESCRIPTION 1) The specimen is received in formalin labelled "Shira Matos, Cecal Polyp" and consists of one, 0.3 x 0.2 x 0.2 cm. light oliver polypoid bit. Total, one block. 2) The specimen is received in formalin labelled "Sihra Matos, Proximal Transverse Colon Polyp" and consists of one, 0.8 x 0.6 x 0.6 cm. oliver-red polypoid fragment. Total, one block. DIAGNOSIS 1) Cecal polyp, excision - A) Tubular adenoma. B) No high grade dysplasia or malignancy. 2) Proximal transverse colon polyp, excision - Hyperplastic polyp. Signed Electronically signed TARI CERNA MD 05/08/06 -- -- DEPARTMENT OF PATHOLOGY, [address] [place] [address] [facility] Permit #[id number] Tari Cerna II, M.D. Director Sravan Lund M.D. Traffic Agent D irector -- 50 Anion gap measurement may be of limited value in the presence of any alkalosis, especially in a combined acid base disorder. . 51 Anion gap measurement may be of limited value in the presence of any alkalosis, especially in a combined acid base disorder. . 52 Classification: Borderline High . 53 CALCULATED LDL APPROXIMATES THE VALUE OF A DIRECT LDL MEASUREMENT. Classification: Borderline High . 54 PA AND LAT XRAYS OF CHEST SHOW INFILTRATION RESEMBLING BRONCHOPNEUMONIA INVOLVING THE RLL, POSSIBLY ALSO THE LLL ALTHOUGH THE HEART SHADOW OBSCURES THE LUNG FIELD. HEART IS NORMAL IN SIZE. NO FLUID IN THE CPA ANGLES. NO BONY ABNORMALITIES 55 Classification: Borderline High . 56 CALCULATED LDL APPROXIMATES THE VALUE OF A DIRECT LDL MEASUREMENT. Classification: Borderline High . 57 Anion gap measurement may be of limited value in the presence of any alkalosis, especially in a combined acid base disorder. . Procedures Date Code Description Status 06/12/2018 75427 Electrocardiogram Complete Completed 05/01/2018 09168 Electrocardiogram Complete Completed 10/22/2017 24136 Dexa Bone Density Study One Or More Sites Axial Completed Skeleton 10/18/2017 29892187 Mammogram Completed 07/25/2016 85988566 Colonoscopy Completed 04/03/2016 34405 X-Ray Chest Two Views Completed 04/03/2016 44802 Electrocardiogram Complete Completed 07/29/2014 05048 Electrocardiogram Complete Completed 06/30/2012 25053 X-Ray Chest Two Views Completed 05/20/2011 89112514 Colonoscopy Completed 08/27/2006 90125 Electrocardiogram Complete Completed 09/29/2005 89562 X-Ray Wrist Three Views Completed 06/12/2005 43770 X-Ray Finger(S) Two Views Completed 06/14/2004 37525 X-Ray Chest Two Views Completed 06/13/2004 60560 X-Ray Chest Two Views Completed 12/13/2003 31147 X-Ray Knee,Ap&Lateral Oblique Views Completed 12/04/2002 04582 Electrocardiogram Complete Completed Encounters Type Date Location Provider Dx Diagnosis Office Visit 06/12/2018 Main Office Quintin Pringle, I10 Essential (primary ) 11:00a D.O. hypertension R07.89 Other chest pain R42 Dizziness and giddiness R06.02 Shortness of breath Office Visit 05/01/2018 9:00a Main Office Nadine Ceballos, I10 Essential ( primary) P.A. hypertension R07.89 Other chest pain N64.4 Mastodynia Office Visit 11/14/2017 9:20a Main Office Ndaine Ceballos, R19.7 Diarrhea, P.A. unspecified Office Visit 10/22/2017 11:00a Main Office Nadine Ceballos M85.80 Oth disrd of bone P.A. density and structure, unspecified site I10 Essential (primary) hypertension Office Visit 09/17/2017 9:40a Main Office Nadine Ceballos, Z11.59 Encounter for P.A. screening for other viral diseases Z13.220 Encounter for screening for lipoid disorders Z00.01 Encounter for general adult medical exam w abnormal findings I10 Essential (primary) hypertension M85.80 Oth disrd of bone density and structure, unspecified site Z12.39 Encounter for oth screening for malignant neoplasm of breast Z12.4 Encounter for screening for malignant neoplasm of cervix B35.4 Tinea corporis R05 Cough Z71.89 Other specified counseling Office Visit 08/15/2017 9:00a Main Office Ulises Jimenez Essential ( primary) P.A. hypertension R05 Cough J20.9 Acute bronchitis, unspecified J01.90 Acute sinusitis, unspecified Office Visit 07/08/2017 4:20p Main Office Nadine Ceballos J01.90 Acute sinusitis, P.A. unspecified H11.32 Conjunctival hemorrhage, left eye R05 Cough Office Visit 03/07/2017 1:00p Main Office Nadine Ceballos, R19.7 Diarrhea, P.A. unspecified R11.2 Nausea with vomiting, unspecified Office Visit 10/22/2016 8:55a Main Office Tari Bell M.D. R05 Cough I10 Essential (primary) hypertension F33.0 Major depressive disorder, recurrent, mild Z71.89 Other specified counseling Z41.8 Encntr for oth proc for purpose oth [facility] Z23 Encounter for immunization Z99.89 Dependence on other enabling machines and devices Office Visit 07/12/2016 8:55a Main Office Tari Montgomery Essential ( primary) Kellee Bell hypertension F33.0 Major depressive disorder, recurrent, mild Office Visit 05/07/2016 9:05a Main Office Tari Tarango ( primary) Kellee Bell hypertension F33.0 Major depressive disorder, recurrent, mild Office Visit 04/17/2016 1:45p Main Office Tari Shaw F33.0 Major depressive Kellee Bell disorder, recurrent, mild R03.0 Elevated blood-pressure reading, w/o diagnosis of htn Office Visit 04/03/2016 3:25p Main Office Tari Shaw R07.9 Chest pain, Kellee Bell unspecified Z71.89 Other specified counseling F33.0 Major depressive disorder, recurrent, mild Z12.39 Encounter for oth screening for malignant neoplasm of breast Z23 Encounter for immunization Z41.8 Encntr for oth proc for purpose oth [facility] Office Visit 11/02/2015 2:30p Main Office Yoan Henao M.D. R51 Headache I10 Essential (primary) hypertension Z23 Encounter for immunization Office Visit 09/12/2015 3:45p Main Office Tari Shaw S80.869A Insect bite Kellee Bell (nonvenomous), unsp lower leg, init encntr Office Visit 07/29/2014 9:40a Main Office Padmini V72.83 Examination PinaKINGSLEY leblanc-C Preoperative Other Spec V72.8 Pre-Op Exam, Unspecified 401.9 Hypertension Unspec V72.63 Pre-Procedural Laboratory Examination Office Visit 06/25/2014 2:00p Main Office Padmini, 401.9 Hypertension Unspec RAD HellerC 616.10 Vaginitis & Vulvovaginitis Unspec V70.0 Examination General Medical Routine AT Health Care Facility Office Visit 02/19/2014 1:20p Main Office Padmini, 955.5 Injury Peripheral Pina RPA-C Nerve Cutaneous Sensory Upper Limb 782.0 Skin Sensation Disturbance Office Visit 06/25/2013 2:00p Main Office Nadine Ceballos, 867.0 Injury Bladder & P.A. Urethra W/O Open Wound Into Cavity 599.9 Urethra & Urinary Tract Unspec Disorder 599.84 Urethra Other Spec Disorders Office Visit 12/18/2012 4:00p Main Office Nadine Ceballos P.A. 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 Preoperative Other Spec V18.3 History Family Blood Disorders Spec Other 401.9 Hypertension Unspec Office Visit 06/30/2012 1:40p Main Office Nadine Ceballos, 786.50 Pain Chest Unspec P.A. 401.9 Hypertension Unspec 784.91 Postnasal Drip 327.23 Obstructive Sleep Apnea Adult & Pediatric 530.81 Esophageal Reflux Office Visit 04/21/2012 9:00a Main Office Nadine Ceballos 472.1 Pharyngitis Chronic P.A. V70.0 Examination General Medical Routine AT Health Care Facility V76.51 Special Screening For Malignant Neoplasms Colon V72.31 Routine X Ray Nurse Examination 300.00 Anxiety State Unspec 285.9 Anemia Unspec V04.81 Need For Prophylactic Vaccination & Inoculation/Influenza V07.2 Prophylactic Immunotherapy 611.79 Breast Signs & Symptoms Other Office Visit 03/04/2012 1:40p Main Office Nadine Ceballos 472.1 Pharyngitis Chronic P.A. 401.9 Hypertension Unspec V77.0 Screening Thyroid Disorders Office Visit 08/31/2010 Main Office Nadine 272.0 Hypercholesterolemia Pure 3:40p Tracy, P.A. 401.9 Hypertension Unspec 296.31 Depressive Disorder Major Recurrent Mild V76.51 Special Screening For Malignant Neoplasms Colon 611.72 Lump Or Mass Breast Office Visit 01/16/2010 Main Office Nadine 272.0 Hypercholesterolemia Pure 9:20a Tracy, P.A. 401.9 Hypertension Unspec V76.2 Screening Malignant Neoplasm Cervix V70.0 Examination General Medical Routine AT [facility] 611.72 Lump Or Mass Breast V72.31 Routine X Ray Nurse Examination Office Visit 05/27/2009 8:40a Main Office Nadine Ceballos 401.9 Hypertension Unspec P.A. 296.31 Depressive Disorder Major Recurrent Mild 272.0 Hypercholesterolemia Pure 281.9 Anemia Deficiency Unspec Office Visit 12/20/2008 10:00a Main Office Heather Garcia MD V76.10 Screening For Malignant Neoplasm Breast 401.9 Hypertension Unspec 296.31 Depressive Disorder Major Recurrent Mild 272.0 Hypercholesterolemia Pure Office Visit 11/26/2008 1:45p Main Office Yoan Henao M.D. 729.5 Pain In Limb 723.1 Cervicalgia Office Visit 08/03/2008 4:45p Main Office Heather Garcia MD 682.8 Cellulitis & Abscess Other Spec Sites 709.1 Vascular Disorders Of Skin Office Visit 06/21/2008 3:30p Main Office Heather Garcia MD 281.9 Anemia Deficiency Unspec 272.0 Hypercholesterolemia Pure Office Visit 05/10/2008 9:30a Main Office Tari Bell 462 Pharyngitis Acute Kellee 683 Lymphadenitis Acute Office Visit 05/09/2008 1:07a Main Office Tari Shaw 683 Lymphadenitis Acute Kellee Bell 462 Pharyngitis Acute Office Visit 05/07/2008 11:30a Main Office Tari Shaw 46Hortencia Pharyngitis Acute Kellee Bell Office Visit 10/17/2007 3:30p Main Office Heather Garcia MD 724.3 Sciatica Office Visit 09/12/2007 9:45a Main Office Heather Garcia MD 401.9 Hypertension Unspec 296.31 Depressive Disorder Major Recurrent Mild Office Visit 08/14/2007 9:45a Main Office Heather Garcia MD 466.0 Bronchitis Acute 296.31 Depressive Disorder Major Recurrent Mild Office Visit 05/15/2007 12:55p Main Office Heather Garcia MD 296.31 Depressive Disorder Major Recurrent Mild Office Visit 03/25/2007 4:45p Main Office Heather Garcia MD 296.31 Depressive Disorder Major Recurrent Mild Office Visit 02/25/2007 1:30p Main Office Yoan Henao, 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 Office Visit 11/03/2005 9:45a Main Office Heather Garcia MD 473.0 Sinusitis Chronic Maxillary Office Visit 09/29/2005 11:00a Main Office Tari Shaw 719.43 Pain Joint Forearm Kellee Bell 727.42 Ganglion Tendon Sheath Office Visit 07/10/2005 3:20p Main Office Shital, 401.1 Hypertension Benign Dacia, N.P. 272.0 Hypercholesterolemia Pure Office Visit 06/12/2005 3:00p Main Office Tari Bell M.D. 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 Examination 401.1 Hypertension Benign 709.9 Skin & Subcutaneous Tissue Disorders Unspec 627.2 Menopausal Or Female Climacteric State, Symptomatic 300.4 Dysthymic Disorder Office Visit 09/26/2004 1:40p Main Office Shital 401.1 Hypertension Angie Dacia, N.P. 272.4 Hyperlipidemia Other Unspec 300.4 Dysthymic Disorder Office Visit 06/22/2004 4:00p Main Office maranda 485 Bronchopneumonia Organism Unspec Office Visit 06/15/2004 11:15a Main Office Navin Harris, 485 Bronchopneumonia M.D. Organism Unspec 786.2 Cough 599.0 UTI Urinary Tract Infection Site Not Spec 780.79 Malaise And Fatigue Other Office Visit 06/13/2004 4:45p Main Office Navin Harris, 485 Bronchopneumonia M.D. Organism Unspec 786.2 Cough 599.0 UTI Urinary Tract Infection Site Not Spec Office Visit 06/02/2004 4:45p Main Office Tari Shaw 487.1 Influenza W/ Isreal Bell M.D. Respiratory Manifestations Office Visit 03/17/2004 11:40a Main Office Shital 401.1 Hypertension Benign Dacia, N.P. 627.3 Atrophic Vaginitis Postmenopausal 719.46 Pain Joint Lower Leg Office Visit 01/04/2004 11:20a Main Office Shital 401.1 Hypertension Benign Dacia, N.P. 300.4 Dysthymic Disorder 627.3 Atrophic Vaginitis Postmenopausal 246.9 Thyroid Disorders Unspec 719.46 Pain Joint Lower Leg V72.3 Examination Gynecological 709.9 Skin & Subcutaneous Tissue Disorders Unspec V81.6 Screening For Genitourinary Conditions Other & Unspec Office Visit 12/13/2003 3:00p Main Office Yoan Henao, 719.46 Pain Joint Lower M.D. Leg Office Visit 12/04/2003 9:45a Main Office maranda 719.46 Pain Joint Lower Leg Office Visit 07/22/2003 1:20p Main Office Shital, 401.1 Hypertension Benign Dacia, N.P. 300.4 Dysthymic Disorder Office Visit 12/04/2002 10:15a Main Office Tari Bell, 786.59 Pain Chest Other M.D. 574.20 Calculus Gallbladder W/O Cholecystitis W/O Obstruction 789.01 Pain Abdominal Right Upper Quadrant Plan of Treatment Future Appointment(s):06/19/2018 9:45 am - Quintin Pringle D.O. at [facility]6606/12/2018 - Quintin Pringle D.O.I10 Essential (primary) hypertensionFollow up:1 week chest pain, [id number] Other chest painReferral:Herbie Downing DO, Cardiology/Phys/[id number] Dizziness and giddinessNew Xrays:MRI Brain Without Contrast, Ordered: 06/12/18Referral:Herbie Downing DO, Cardiology/Phys/HgpzhW36.02 Shortness of breathReferral:Herbie Downing DO, Cardiology/Phys/Osteo
--- OUTSIDE RECORDS SUMMARY | 2018-06-13 10:19 | XMS REPORT | Continuity of Care Document ---
:1950 External Reference #:[id number] Author Name Quintin Pringle D.O. Address [address] [place] [address] Care Team Providers Name Role Phone HCP given Primary Care Physician Unavailable Payers Type Date Identification Numbers Payment Provider Subscriber Effective: Policy Number: [id number] [facility] Shira Matos 2016 Services Expires: 2017 PayID: [id number] [place] [address] Effective: 2017 Policy Number: [employer] Shira Matos [id number] Ppo PayID: [id number] [facility] [address] [place] [address] Effective: 2016 Policy Number: [facility] Shira Matos [id number] Services Expires: 2017 PayID: [id number] [facility] [address] [place] [address] Advance Directives Description No Information Available Problems Date Description Provider Status Onset: 01/24/2004 Chondromalacia of patella Navin Harris M.D. Active Onset: 05/07/2016 Essential hypertension Tari Bell M.D. Active Onset: 12/20/2008 Essential hypertension Heather Garcia MD Inactive Inactive: 09/12/2015 Family History Date Family Member(s) Problem(s) Comments Father due to IA () - AGE 57 Father 1924 Mother [...] days post op Paternal Grandfather 47 of IA Paternal Grandmother age 87 Maternal Grandfather 86 or so, "old age" Maternal Grandmother coronary artery disease, 86 and had colon cancer. Social History Type Date Description Comments Sex Unknown Education Highest level of education completed is post grad Marital Status Patient is , has 3 children. 1 Son graduated [employer], age 27, working in [place]. One son is an structural analysis engineer, lives in [place]. Daughter at [employer]. 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 Uses sunscreen Seat Belt/Car Seat Always uses a seat belt Currently Active The patient is currently sexually active Contraceptive Methods Does not currently use any method of control Age 1st [place] First intercourse was at age 21 # Partners in a Lifetime The patient has had 2 sexual partners Additional Info Sexual preference is men Allergies, Adverse Reactions, Alerts Description No Known Drug Allergies Medications Medication Date Status Form Strength Qnty SIG Indications Ordering Provider Fluticasone 12/19 Active Suspension 50mcg/Act 16uni [place] Two J01.90 Silcoff, ts Sprays In Yoan Each MGagandeepDGagandeep Nostril Twice A Day Until Better Hydrochlorothiazi 09/17 Active Tablets 25mg 90tab 1 every I10 Silcoff, de s day for bp Kellee Milton Proair HFA 08/15 Active Aerosol 108(90Bas 8.5un Take 1-2 J20.9 Silco e) its Puffs Up Yoan, mcg/Act To [...] Active Tablets DR 81mg prn I10 Unknown /0000 Lisinopril 09/17 Hx Tablets 10mg 90tab take 1 I10 s tablet Yoan, - every M.D. 09/17 for blood pressure control Flonase Allergy 08/14 Hx Suspension 50mcg/Act 9.900 2 sprays J01.90 Silcoff, ml twice a Yoan, - day until M.D. 12/19. Azithromycin 07/08 Hx Tablets 250mg 6tabs 2 tabs day R05 one and 1 Yoan, - tab days M.D. 08/14 2- Fluticasone 07/08 Hx Suspension 50mcg/Act 16uni two sprays J01.90 Silcoff, ts (50 Yoan, - mcg/spray) M.D. 07/27 nostril once daily for sinus congestion Metronidazole 03/09 Hx Tablets 500mg 15tab take 1 Sopchak, s tablet by Quintin, - mouth 3 D.O. 03/14 times day for 5 days Hydrochlorothiazi 05/07 Hx Tablets 25mg 90tab 1 every I10 Silcoff, s day for bp Yoan - M.D. 09/17 Sertraline HCL 04/03 Hx Tablets 50mg 60tab 1 by mouth F33.0 s twice a A. - day Maranda, 04/16 M.DGagandeep /2015 Metronidazole 07/29 Hx Cream 0.75% 45gm insert 5 Tyler, gm Zuleika SUERO - vaginally 04/16 qhs for days Aspir-81 06/[address] 81mg 1 by mouth I10 Pino, every day Max RibeiroOGagandeep 04/17 Premarin 12/18 Hx Cream 0.625mg/G 50G apply 0.5 624.1 Silcoff, M g qhs,pv x Yoan, - 2 weeks M.D. 02/19 reduce to using 2 days a week and/or applying small amt to the vaginal opening Azithromycin 12/18 Hx Tablets 250mg 6tabs 2 tabs day 466.0 Silco, one, one Yoan, - tab days M.D. 06/25 2- Prednisone 12/18 Hx Tablets 20mg 5tabs 1 tab po 466.0 Silco, qam x 5 Yoan, - days M.D. 06/25 Ventolin HFA 12/18 Hx Aerosol 108(90Bas 1cani 2 puff q 466.0 Silcoff, e) mcg/ac ster 4-6 Yoan - Rachid.DGagandeep 06/25 Omeprazole 03/[address] 20mg 60tab 1 po bid 472.1 Juliano s Max Milton.[place] 02/19 Hydrochlorothiazi 03/04 Hx Tablets 25mg 90tab Take One 401.9 Juliano, s Tablet By Yoan, - Mouth M.D. 02/19 Every Day Fish Oil 08/31 Hx Capsules Silcoiqra, Max Milton M.D. 03/03 PT For L Arm And 11/26 Hx please 729.5 Juliano Neck Pain evaluate Yoan (Suspected C5-6 - and treat, Kellee Radiculopathy) 01/16 in hep, modalities prn. 723.1 [...] tid For 10 462 Tari A. 06/21/2008 Days Kellee Bell Hydrocodone 10/17/2007 - Hx Tablets 5-500 30tabs one to 2 724.3 Jose Bitartrate/Apap 06/21/2008 mg tablets po Heather SUERO q6h prn for pain Levaquin 08/14/2007 - Hx Tablets 500mg 10tabs 1 PO Once 466.0 Jose, 08/24/2007 Daily as Heather SUERO Directed Sertraline HCL 08/14/2007 - Hx Tablets 50mg 30tabs one tablet po 296.31 Silcoff, 03/03/2012 once daily in Yoan, the luz Goodson Robitussin ac 08/14/2007 - Hx 250ml 10 [...] po Jose, 04/25/2006 bid for 5 Heather SUERO days Singulair 11/30/2005 - Hx Tablets 10mg 30tabs 1 po qd in 786.2 Silcoff, 03/19/2006 evening Kellee Milton Amoxil 11/03/2005 - Hx Tablets 500mg 40tabs 2 tablets po 473.0 Jose, 11/13/2005 bid Heather SUERO Robitussin A-c 11/03/2005 - Hx Syrup 100mg 250ml 10 cc po q 8h 473.0 Silcoff, 03/19/2006 ;10mg prn Yoan, /5ML BradyDGagandeep 786.2 Cephalexin 06/12/2005 Hx Capsules 250mg 40caps [...] Capsules 20mg 180caps 2 tabs A day Jose, Max Romero MD 09/17/2006 Work Note 06/22/2004 Hx patient [...] - ;10mg/ q 3 hr prn for Steven, 09/26/2004 5ML cough (patient MPetra bringing rx) Work Note 06/05/2004 Hx please excuse Shital, Max Silva from [place], 11/30/2005 work 06/02/04 N.P. until 06/08/04. She is being evaluated an HRT Patch 06/02/2004 Hx Tari Shaw 07/10/2005 Kellee Bell Advil 06/02/2004 Hx Tablets 200mg Tari Shaw 09/26/2004 Kellee Bell Rimantadine 06/02/2004 Hx Tablets 100mg 10tabs 1 po bid for 487.1 Tari - influenza A. 06/07/2004 Kellee Bell Prozac 04/14/2003 Hx Capsules 20mg 180caps take 2 tablets Breiman, - everyday Dacia, 09/26/2004 N.P. Hydrochlorothiazide 04/14/2003 Hx Tablets 25mg 90tabs take 1 tablet 401.9 Tiabessie, - orally Yoan, 03/03/2012 everyday M.DGagandeep Prozac 20 MG 2 Tabs 02/11/2003 Hx Tabs 90tabs take 2 tablets Breiman, Everyday - everyday Dacia, 03/12/2003 N.P. Sertraline HCL Hx Tablets 50mg one tablet po 296.31 Maranda , - once daily in Tari 04/03/2016 the evening AKellee Donis Medications Administered in Office Medication Date Status Form Strength Qnty SIG Indications Ordering Provider H1N1 Swine Flu Administered Injection Nurse's Vaccine 009 Schedule Immunizations CPT Code Status Date Vaccine Lot # [id number] Given 01/27/2018 Influenza Vaccine Split Virus Preservative Free Im [id number] Use 57087 Given 09/18/2017 Shingrix Zoster (Shingles) Vaccine (HZV) [id number] Recomb,Subnit,Adjuvanted 20754 Given 04/26/2017 Influenza Virus Vaccine, Quadrivalent, Split, [id number] Preservative Free 10155 Given 10/22/2016 Prevnar 13 [id number] 65205 Given 04/03/2016 Influenza Virus Vaccine, Quadrivalent, Split, [id number] Preservative Free 82490 Given 11/02/2015 Zostavax [id number] U-Flu Given 05/24/2015 Influenza,Unspecified 57752 Given 03/19/2014 Flu, Split Virus 3Yrs [id number] 89606 Given 05/23/2013 Flu, Split Virus 3Yrs 26285 Given 04/21/2012 Flu, Split Virus 3Yrs [id number] 25115 Given 05/17/2011 Flu, Split Virus 3Yrs [id number] 42048 Given 01/20/2010 Adacel or Boostrix, TDaP [id number] 92646 Given 03/19/2008 Flu, Split Virus 3Yrs [id number] 03670 Given 05/05/2007 Flu, Split Virus 3Yrs [id number] 69997 Given 04/10/2006 Flu, Split Virus 3Yrs 77026 Given 04/10/2006 Flu, Split Virus 3Yrs [id number] 29024 Given 04/26/2005 Pneumococcal Immunization 99496 Given 04/26/2005 Pneumococcal Immunization [id number] 93632 Given 04/26/2005 Flu, Split Virus 3Yrs 67818 Given 04/26/2005 Flu, Split Virus 3Yrs [id number] 21414 Given 05/05/2003 Flu, Split Virus 3Yrs 22394 Given 05/05/2003 Flu, Split Virus 3Yrs Vital [...] 05/07/2016 9:11am BP Systolic 146 mmHg k rsfs=237n BP Diastolic 80 mmHg k smoc=019k Heart Rate 70 /min 04/17/2016 1:47pm BP [...] Date Facility Test Result H/L Range Note Laboratory 09/19/19 [facility] Hepatitis C Nonreactive Nonreactive test finding 89 [phone] Antibody Lipid Profile 09/19/19 [facility] Triglycerides 76 mg/dL 1 (Trig/Chol/HDL 80 [phone] ) Cholesterol 215 mg/dL 2 HDL Cholesterol 72.5 mg/dL 3 LDL Cholesterol 127 mg/dL 4 CBC Auto Diff 09/18/2017 [facility] White Blood Count 5.3 10^3/uL N 3.5-10.8 [phone] Red Blood Count 3.97 10^6/uL Low 4.0-5.4 [...] Blood Cells % 0 Comp Metabolic Panel 09/18/2017 [facility] Sodium 137 mmol/L Low 139- 145 [phone] Potassium 3.6 mmol/L N 3.5-5.0 Chloride 100 [...] Egfr Non- 82.6 >60 Egfr 106.3 >60 5 [facility] Inhouse 09/17/2017 In House Ua Glucose - 6 Ua Bilirubin - Ua Ketones - Ua Specific Rogers 1.005 Ua Blood - Ua PH 6.0 Ua Protein - Ua Urobilinogen - Ua Nitrite - Ua Leukocytes - Laboratory test 09/17/2017 [facility] Cytology SEE RESULT 7 finding [phone] BELOW Laboratory test 03/08/2017 [facility] Stool Occult SEE RESULT 8 finding [phone] Blood Diag BELOW Laboratory test 07/25/2016 [facility] Surgical SEE RESULT 9, 10 finding [phone] Pathology BELOW Urine Micro 07/12/2016 In House Ua WBC 1-2 11 Inhouse Ua RBC - Ua Casts - Ua Epi TNTC Ua Other - Ua Glucose - Ua Bilirubin - Ua Ketones - Ua Specific Rogers 1.005 Ua Blood - Ua PH 7.5 Ua Protein - Ua Urobilinogen - Ua Nitrite - Ua Leukocytes - Basic Metabolic Panel 07/12/2016 [facility] Sodium 137 mmol/L N 133- 145 [phone] Potassium 3.9 mmol/L N 3.5-5.0 Chloride 100 mmol/L Low 101-111 Co2 Carbon Dioxide 31 mmol/L N 22-32 Anion Gap 6 mmol/L N 2-11 Glucose 95 mg/dL N 70-100 Blood Urea Nitrogen 12 mg/dL N 6-24 Creatinine 0.71 mg/dL N 0.51-0.95 BUN/Creatinine Ratio 16.9 N 8-20 Calcium 9.5 mg/dL N 8.6-10.3 Egfr Non- 82.9 N >60 Egfr 106.6 N >60 12 Xray 04/03/2016 [facility] X-Ray, Chest, 2 wnl Views Laboratory test 01/23/2015 [facility] Culture Genital & SEE RESULT 13 finding [phone] Sensitivity BELOW Gardnerella/Yeast: Vaginal Dna SEE RESULT BELOW 14 Trichomonas: Vaginal Dna Probe SEE RESULT BELOW 15 Type & Screen 01/10/2015 [facility] Patient Blood Type O Positive N 16 [phone] Antibody Screen NEGATIVE N CBC Auto Diff 01/10/2015 [facility] White Blood Count 4.9 10^3/uL N 4.8-10.8 [phone] Red Blood Count 3.80 10^6/uL Low 4.0-5.4 [...] Nucleated Red Blood Cells % 0 N CBC Auto Diff 08/16/2014 [facility] White Blood Count 8.6 10^3/uL N 4.8-10.8 17 [phone] Red Blood Count 3.96 10^6/uL Low 4.0-5.4 [...] % 0 N Type & Screen 08/16/2014 [facility] Patient Blood Type O Positive N [phone] Antibody Screen NEGATIVE N CBC Auto Diff 07/21/2014 [facility] White Blood Count 4.3 10^3/uL Low 4.8-10.8 18 [phone] Red Blood Count 3.87 10^6/uL Low 4.0-5.4 [...] % 0.1 N Comp Metabolic Panel 07/21/2014 [facility] Sodium 138 mmol/L N 133- 145 [phone] Potassium 4.0 mmol/L N 3.5-5.0 Chloride 104 [...] N >60 19 Lipid Profile (Trig/Chol/HDL) 07/21/2014 [facility] Triglycerides 66 mg /dL N 20 [phone] Cholesterol 199 mg/dL N 21 HDL Cholesterol 61.8 mg/dL N 22 LDL Cholesterol 124 mg/dL N 23 Laboratory test finding 06/25/2014 In House Wet Prep see result notes 24 Javier see result notes Ua Inhouse 06/25/2013 In House Ua Glucose - Ua Bilirubin - Ua Ketones - Ua Specific Rogers 1.005 Ua Blood - Ua PH 6.0 Ua Protein - Ua Urobilinogen - Ua Nitrite - Ua Leukocytes - Ua Inhouse 09/12/2012 In House Ua Glucose - Ua Bilirubin - Ua Ketones - Ua Specific Rogers 1.005 Ua Blood - Ua PH 7.5 Ua Protein - Ua Urobilinogen - Ua Nitrite - Ua Leukocytes - CBC Auto Diff 09/12/2012 [facility] White Blood Count 7.0 10^3/uL 4.8-10.8 [phone] Red Blood Count 3.94 10^6/uL Low 4.0-5.4 [...] 0-2 Nucleated Red Blood Cells % 0 Xray 06/30/2012 [facility] X-Ray, Chest, 2 wnl, rev Views w/Dr Villa Laboratory test 04/21/2012 [facility] Cytology RUN DATE: finding [phone] 04/22/ <SEE NOTE> CBC Auto Diff 04/16/2012 [facility] White Blood 4.0 10^3/uL Low 4.8- 10. [phone] Count 8 Red Blood Count 3.61 10^6/uL [...] Cells % 0 Comp Metabolic Panel 04/16/2012 [facility] Sodium 137 mmol/L 133- 145 [phone] Potassium 4.3 mmol/L 3.5-5.0 Chloride 104 mmol/L [...] Egfr 131.1 >60 26 Lipid Profile 04/16/2012 [facility] Triglycerides 78 mg/dL 40-200 (Trig/Chol/HDL) [phone] Cholesterol 170 mg/dL Less than 200 HDL Cholesterol 52 mg/dL 40-60 27 Cholesterol/HDL Ratio 3.3 AVERAGE 1-4.44 LDL Cholesterol 102.4 mg/dL High Less Than 100 28 Laboratory test 04/16/2012 [facility] TSH (Thyroid 1.82 MIU/ML 0.34- 5.60 finding [phone] Stimulating Horm) Lipid Profile 08/16/2010 [facility] Triglyceride 61 mg/dL 40-200 (Trig/Chol/HDL) [phone] Cholesterol 200 mg/dL Less Than 200 29 High Density Lipoprotein 58 mg/dL 40-60 30 Cholesterol/HDL Ratio 3.45 AVERAGE 1-4.44 Low Density Lipoprotein 130 mg/dL High Less Than 100 31 Throat-Beta Strept 06/10/2010 [facility] Throat-Beta Strep NF 32 [phone] Culture Laboratory test 01/16/2010 [facility] Cytology 33 finding [phone] ------ <SEE NOTE> CBC With 01/12/2010 [facility] White Blood Count 4.7 CUMM Low 4.8-10 Electronic Diff [phone] .[phone] Red Cell Count 3.67 CUMM Low 4.2-5.4 [...] Eosinophils 0 0-0.6 Abs Basophils 0 0-0.2 Comp Metabolic Panel 01/12/2010 [facility] Sodium 140 mmol/L 135- 145 [phone] Potassium 4.0 mmol/L 3.5-5.0 Chloride 105 mmol/L 101-111 Co2 (Carbon Dioxide) 30.0 mmol/L 22-32 Anion Gap 5.0 mmol/L 2-11 34 Glucose 89 mg/dL 70-100 35 BUN 10 mg/dL 6-24 Creatinine 0.60 mg/dL 0.50-1.40 One Over Creatinine 1.60 BUN/Creatinine Ratio 16.7 8-20 Calcium 9.2 mg/dL 8.1-9.9 36 Total Protein 6.1 GM/DL Low 6.2-8.1 Albumin 3.9 GM/DL 3.6-5.4 Globulin 2.2 GM/DL 2-4 Albumin/Globulin Ratio 1.8 1-3 Bilirubin Total 0.4 mg/dL 0.4-1.5 37 Alkaline Phosphatase 74 U/L 30-110 Alt (SGPT) 16 U/L 14-54 Ast (Sgot) 19 U/L 12-42 eGFR Non- 109.1 > 60 eGFR 132.0 > 60 38 Lipid Profile 01/12/2010 [facility] Triglyceride 90 mg/dL 40-200 (Trig/Chol/HDL) [phone] Cholesterol 203 mg/dL High Less Than 200 39 High Density Lipoprotein 47 mg/dL 40-60 40 Cholesterol/HDL Ratio 4.32 AVERAGE 1-4.44 Low Density Lipoprotein 138 mg/dL High Less Than 100 41 Laboratory test 08/03/2008 [facility] Ferritin 63 NG/ML 11.0-307 finding [phone] CBC With Manual Diff 08/03/2008 [facility] White Blood Count 6.1 CUMM 4.8-10.8 [phone] Red Cell Count 3.80 CUMM Low 4.2-5.4 [...] Absolute Neutrophil Count 4.0 RBC Morphology NORMAL Comp Metabolic Panel 06/01/2008 [facility] Sodium 139 mmol/L 135- 145 [phone] Potassium 4.0 mmol/L 3.5-5.0 Chloride 102 mmol/L 101-111 Co2 (Carbon Dioxide) 30 mmol/L 22-32 Anion Gap 7 mmol/L 2-11 42 Glucose 85 mg/dL 70-100 43 BUN 13 mg/dL 6-24 Creatinine 0.56 mg/dL 0.50-1.40 One Over Creatinine 1.70 BUN/Creatinine Ratio 23.2 High 8-20 Calcium 9.2 mg/dL 8.1-9.9 44 Total Protein 7.3 GM/DL 6.2-8.1 Albumin 4.0 GM/DL 3.6-5.4 Globulin 3.3 GM/DL 2-4 Albumin/Globulin Ratio 1.2 1-3 Bilirubin Total 0.7 mg/dL 0.4-1.5 Alkaline Phosphatase 80 U/L 30-110 Alt (SGPT) 24 U/L 14-54 Ast (Sgot) 28 U/L 12-42 Lipid Profile 06/01/2008 [facility] Triglyceride 55 mg/dL 40-200 (Trig/Chol/HDL) [phone] Cholesterol 233 mg/dL High Less Than 200 45 High Density Lipoprotein 61.3 mg/dL High 40-60 46 Cholesterol/HDL Ratio 3.80 AVERAGE 1-4.44 Low Density Lipoprotein 161 mg/dL High Less Than 100 47 CBC With Manual 06/01/2008 [facility] White Blood Count 4.4 CUMM Low 4.8-10.8 Diff [phone] Red Cell Count 3.67 CUMM Low 4.2-5.4 [...] 0-6 Absolute Neutrophil Count 2.8 Hypochromasia SLIGHT CBC With Manual 05/09/2008 [facility] White Blood 11.4 CUMM High 4.8- 10.8 Diff Stat [phone] Count Red Cell Count 4.04 CUMM Low [...] Count 10.0 RBC Morphology NORMAL Laboratory test 05/09/2008 [facility] Monospot Stat NEGATIVE Negative finding [phone] Laboratory test 05/08/2008 In House Culture Throat - finding Rapid Screen Culture Throat + Laboratory 08/28/2006 [facility] Cytology 48 test finding [phone] <SEE NOTE> Surgical 05/07/2006 [facility] Surgical 49 Pathology [phone] Pathology <SEE NOTE> Laboratory 04/16/2006 In House Urine Culture pos 02/21 growth test finding Laboratory 04/15/2006 In House Urine loaded rbc,20-30wbc Low 20- test finding Microscopic 30e Inhouse pi Ua Inhouse 04/15/2006 In House Ua Glucose - Ua Bilirubin - Ua Ketones - Ua Specific Rogers 1.005 Ua Blood +++ Ua PH 8.5 Ua Protein ++ Ua Urobilinogen - Ua Nitrite - Ua Leukocytes - CBC With Manual Diff 03/20/2006 [facility] RBC Morphology NORMAL [address] [place], [place] [id number] [phone] White Blood Count 4.7 CUMM Low 4.8-10.8 [...] 21 % 5-47 Monocyte 12 % 0-13 Comp Metabolic 03/20/2006 [facility] Center One Over Creatinine 1.42 Panel [address] [place] [address] [phone] Anion Gap 3.2 mmol/L 2-11 50 Albumin/Globulin [...] Ratio 15.7 8-20 Creatinine 0.7 mg/dL 0.5-1.4 Ua Inhouse 03/19/2006 In House Ua Glucose - Ua Bilirubin - Ua Ketones - Ua Specific Rogers 1.010 Ua Blood - Ua PH 6.0 Ua Protein - Ua Urobilinogen - Ua Nitrite - Ua Leukocytes - Ua Inhouse 01/16/2005 In House Ua Glucose NEG Ua Bilirubin NEG Ua Ketones NEG Ua Specific Rogers 1.010 Ua Blood NEG Ua PH 6.0 Ua Protein NEG Ua Urobilinogen NEG Ua Nitrite NEG Ua Leukocytes NEG Laboratory test 09/08/2004 [facility] Rheumatoid < 20.0 Less Than finding [phone] Factor IU/mL 20 Comp Metabolic 09/08/2004 [facility] Anion Gap 6.0 mmol/L 2-11 51 Panel [phone] Albumin/Globulin Ratio 1.3 1-3 Albumin 4.0 GM/DL [...] 12.9 8-20 CBC With Manual Diff 09/08/2004 [facility] RBC Morphology NORMAL [phone] White Blood Count 4.8 CUMM 4.8-10.8 Hematocrit [...] Monocyte 6 % 0-13 Lipid Profile 09/08/2004 [facility] Cholesterol 209 mg/dL High Less Than 52 (Trig/Chol/HDL) [phone] 200 Triglyceride 85 mg/dL 40-200 High Density Lipoprotein 51 mg/dL 40-60 Low Density Lipoprotein 141 mg/dL High Less Than 100 53 Cholesterol/HDL Ratio 4.10 AVERAGE 1-4.44 Ua Inhouse 06/16/2004 In House Ua Glucose NEG Ua Bilirubin NEG Ua Ketones NEG Ua Specific Rogers 1.010 Ua Blood NEG Ua PH 6.5 Ua Protein TRACE Ua Urobilinogen NEG Ua Nitrite NEG Ua Leukocytes NEG Xray 06/14/2004 [facility] Medicine X-ray, Chest, 2 BRONCHOPNEUMONIA 54 Views Culture Urine 06/14/2004 In House Presumptive pos Inhouse Klebsiella pos Colonies 10 to the 5th Ua Inhouse 06/13/2004 In House Ua Glucose neg Ua Bilirubin neg Ua Ketones neg Ua Specific Rogers 1.005 Ua Blood +++ Ua PH 5.0 Ua Protein neg Ua Urobilinogen neg Ua Nitrite neg Ua Leukocytes +++ CBC With Electronic 02/28/2004 [facility] White Blood 4.9 CUMM 4.8- 10.8 Diff [phone] Count Abs Basophils 0 0-0.2 Abs Eosinophils [...] 4.2-5.4 Redcell Distribution WDTH 14 % 10.5-15 Laboratory test 02/28/2004 [facility] TSH 2.17 MIU/ML 0.34-5.60 finding [phone] Comp Metabolic Panel 02/28/2004 [facility] Anion Gap 7.0 mmol/L 2- 11 55 [phone] Albumin/Globulin Ratio 1.4 1-3 Albumin 3.9 GM/DL [...] 6.6 GM/DL 6.2-8.1 BUN/Creatinine Ratio 12.5 8-20 Lipid Profile 02/28/2004 [facility] Cholesterol 223 mg/dL High Less Than 56 (Trig/Chol/HDL) [phone] 200 Triglyceride 102 mg/dL 40-200 High Density Lipoprotein 58 mg/dL 40-60 Low Density Lipoprotein 145 mg/dL High Less Than 100 57 Cholesterol/HDL Ratio 3.84 AVERAGE 1-4.44 Paty (Antinuclear 02/28/2004 [facility] Antinuclear AB 1:160 Abnormal Antibodies) [phone] Antinuclear AB POSITIVE Abnormal Negative Paty Pattern SPECKLED Abnormal Xray 01/04/2004 [facility] Mammography, Bilateral NEGATIVE [place], [place] [id number] [phone] 1 Desirable: <150 Borderline High: 150-199 High: 200-499 Very High: >500 2 Desirable: <200 Borderline High: 200-239 High: >239 3 Low: <40 Desirable: 40-60 High: >60 4 Desirable: <100 Near Optimal: 100-129 Borderline High: 130-159 High: 160-189 Very High: >189 5 Because ethnic data is not always readily [...] 15-29 5 Kidney failure <15 (or dialysis) 6 void, clear, yellow 7 SEE RESULT BELOW Name: SHIRA MATOS : [address]: Nadine CALVO Acct: [id number] Unit: [id number] AGE: 66 Location: [facility] Re09/17/17 SEX: F Status: REG REF SPEC: [id number] CJ: 09/17/17-[address]: Nadine CALVO REQ: [id number] RECD: 09/17/17 STATUS: SOUT _ ORDERED: TP IMAGE ANALYS, HPV/Thin Prep COMMENTS: [id number] Negative for Intraepithelial lesion or Malignancy A. [...] 68. Signed by and Reported on: Kun WintersADELIA (ASC) 1425 This Pap test was evaluated with the assistance of the MakoondiPrep Test Imaging System. Due to cytologic findings at the forest management professor microscope, comprehensive manual rescreening by a Roof Tiler may be required. The Pap Smear is [...] years. END OF REPORT DEPARTMENT OF PATHOLOGY, [address] [place] [address] Sravan Lund M.D. Director [facility] # [id number] 8 SEE RESULT BELOW Name: SHIRA MATOS : [address]: Nadine CALVO Acct: [id number] Unit: [id number] AGE: 66 Location: [facility] Re03/08/17 SEX: F Status: REG REF SPEC: [id number] CJ: 03/08/[address] [facility] [address]: Nadine CALVO REQ: [id number] RECD: 03/08/17 STATUS: COMP _ SOURCE: STOOL [...] performed at Main Lab DEPARTMENT OF PATHOLOGY, [address] [place] [address] Sravan Lund M.D. Director [facility] # [id number] Patient: SHIRA MATOS [id number] (Continued) Specimen: [id number] Collected: 03/08/17 Received: 03/08/17-626 (Continued) Procedure Result Reported Site Shiga Toxin [...] performed at Main Lab DEPARTMENT OF PATHOLOGY, [address] [place] [address] Sravan Lund M.D. Director [facility] # [id number] 9 [id number] SEE RESULT BELOW Name: SHIRA MATOS : [address]: Kishan Almonte MD Acct: [id number] Unit: [id number] AGE: 65 Location: [facility] Re07/25/16 SEX: F Status: DEP REF SPEC: [id number] CJ: 07/25/16- SUBM DR: Kishan Almonte MD REQ: [id number] RECD: 07/25/16 STATUS: JOSE FITZPATRICK DR: Tari Bell MD _ ORDERED: LEVEL IV/3 COMMENTS: [id number] FINAL DIAGNOSIS 1. Colon, mid transverse, biopsy: [...] performed at Main Lab DEPARTMENT OF PATHOLOGY, [address] [place] [address] Sravan Lund M.D. Director [facility] # [id number] RUN DATE: 07/26/16 [facility] LAB LIVE PAGE 2 Patient: SHIRA MATOS [id number] (Continued) GROSS DESCRIPTION (Continued) GROSS DESCRIPTION (Continued) 0.5 x 0.3 x 0.1 cm, which are submitted entirely in one cassette. Signed (signature on file) Kasia Peck MD 02/03 1538 END OF REPORT * ML=Testing performed at Main Lab DEPARTMENT OF PATHOLOGY, [address] [place] [address] Sravan Lund M.D. Director [facility] # [id number] 11 sameera, vishal padilla 12 Because ethnic data is [...] : [address]: Negrita Mustafa Acct: [id number] Unit: [id number] AGE: 64 Location: [facility] Re01/23/15 SEX: F Status: DEP ER SPEC: [id number] CJ: 01/23/15-[address] [facility] [address]: June Olson DO REQ: [id number] RECD: 01/24/156204 STATUS: SIMONA FITZPATRICK DR: Tari Bell MD [...] resistant strains have not been recognized. (CLSI [id number];p.66) Positive isolates will be saved for one week. Please call the Microbiology Laboratory if further susceptibility testing is needed. * ML - MAIN LAB ([facility]) . END OF REPORT * ML=Testing performed at Main Lab DEPARTMENT OF PATHOLOGY, [address] [place] [address] Sravan Lund M.D. Director [facility] # [id number] 14 SEE RESULT BELOW Name: SHIRA MATOS : [address]: Negrita Mustafa Acct: [id number] Unit: [id number] AGE: 64 Location: [facility] Re01/23/15 SEX: F Status: DEP ER SPEC: [id number] CJ: 01/23/15-[address] [facility] [address]: June Olson DO REQ: [id number] RECD: 01/24/15-518 STATUS: SIMONA FITZPATRICK DR: Tari Bell MD [...] therapeutic success or failure. * ML - [facility] ([facility]) . END OF REPORT * ML=Testing performed at Main Lab DEPARTMENT OF PATHOLOGY, [address] [place] [address] Sravan Lund M.D. Director [facility] # [id number] 15 SEE RESULT BELOW Name: MATOSSHIRA Villa : [address]: Negrita Mustafa Acct: [id number] Unit: [id number] AGE: 64 Location: [facility] Re01/23/15 SEX: F Status: DEP ER SPEC: [id number] CJ: 01/23/15-[address] [facility] [address]: June Olson DO REQ: [id number] RECD: 01/24/15 STATUS: SIMONA [facility] DR: Tari Bell MD _ SOURCE: VAGINAL [...] performed at Main Lab DEPARTMENT OF PATHOLOGY, [address] [place] [address] Sravan Lund M.D. Director [facility] # [id number] Patient: SHIRA MATOS [id number] (Continued) Specimen: [id number] Collected: 01/23/15 Received: 01/24/15 (Continued) Procedure Result Verified Site Trichomonas: Vaginal DNA Probe Final (continued) 01/26/15- 1413 The presence or absence of T. vaginalis cannot be used as a test for therapeutic success or failure. * ML - MAIN LAB ([facility]) . END OF REPORT * ML=Testing performed at Main Lab DEPARTMENT OF PATHOLOGY, [facility] [employer] [place], [place] [address] Sravan Lund M.D. Director [facility] # [id number] 16 AA 01/17 17 AA 08/30 18 [...] cell, (+) whiff. 25 RUN DATE: 04/22/12 [facility] LAB LIVE PAGE 1 RUN TIME: 1224 [facility] [employer] [place], [place] [address] Specimen Inquiry Name: SHIRA MATOS : [address]: Nadine Ceballos PA Acct: [id number] Unit: [id number] AGE: 61 Location: [facility] Re04/21/12 SEX: F Status: REG REF SPEC: [id number] CJ: 04/21/12-[address]: Nadine Ceballos PA REQ: [id number] RECD: 04/22/12 STATUS: SOUT _ ORDERED: IMAGE [...] was evaluated with the assistance of the Shape[employer]p Test Imaging System. Due to cytologic findings at the forest management professor microscope, comprehensive manual rescreening by a Roof Tiler may be required. The Pap Smear is [...] performed at Main Lab DEPARTMENT OF PATHOLOGY, [address] [place] [address] Sravan Lund M.D. Director [facility] Permit #[id number] 26 Because ethnic data is not always [...] BETA STREPTOCOCCUS 33 ---- RUN DATE: 01/17/10 [facility] NMI LIVE PAGE 1 RUN TIME: 1120 Specimen Inquiry RUN USER: INTERFACE -- [id number] Status: REG REF Re01/16/10 Age/Sex: 59/F Unit#: [id number] Location: [facility] : [birth year] -- Specimen: [id number] SOUT Spec Date: 01/16/[address]: Nadine CALVO Spec Type: CYTOLOGY Received: 01/17/10-0834 Copies to: SOURCE ECTOCERVICAL/ENDOCERVICAL Thin Prep with [...] 01/17/10 Final Interpretation electronically signed by: Clayton WINTERS(ASCP) 01/17/10 1120 -- -- DEPARTMENT OF PATHOLOGY, [address] [place] [address] [facility] Permit #[id number] Sravan Lund M.D. Director Kiki Gillespie M.D. Preschool Adviser Dir bean -- 34 Anion gap measurement may be of limited value in the presence of any alkalosis, especially in a combined acid base disorder. . 35 Note change in reference range as of 01/08/08. The change was based on recommendations from the [place] [employer]. 36 Please note change in reference range effective 07 . 37 A metabolite of Naproxen, O-desmethylnaproxen, has been shown to interfere with the [place] method for measuring total bilirubin. Samples from patients who have taken Naproxen have shown spurious elevation in total bilirubin levels. 38 Because ethnic data is not always readily [...] 15-29 5 Kidney failure <15 (or dialysis) 39 CHOLESTEROL INTERPRETATION: Desirable: Less than 200 MG/DL Borderline-High Risk: 200-239 MG/DL High-Risk: 240 MG/DL and over 40 HDL INTERPRETATION: Undesirable: High Risk: Less than 40 MG/DL Desirable: Low Risk: Greater than 60 MG/DL 41 LDL INTERPRETATION: Low Risk Optimal Level: LDL Less than 100 MG/DL Near or Above Optimal: LDL 100-129 MG/DL Borderline High Risk: LDL 130-159 MG/DL High Risk: LDL 160-189 MG/DL Very High Risk: LDL Greater than 189 MG/DL 42 Anion gap measurement may be of limited value in the presence of any alkalosis, especially in a combined acid base disorder. . 43 Note change in reference range as of 01/08/08. The change was based on recommendations from the [place] [employer]. 44 Please note change in reference range effective 07 . 45 CHOLESTEROL INTERPRETATION: Desirable: Less than 200 MG/DL Borderline-High Risk: 200-239 MG/DL High-Risk: 240 MG/DL and over 46 HDL INTERPRETATION: Undesirable: High Risk: Less than 40 MG/DL Desirable: Low Risk: Greater than 60 MG/DL 47 LDL INTERPRETATION: Low Risk Optimal Level: LDL Less than 100 MG/DL Near or Above Optimal: LDL 100-129 MG/DL Borderline High Risk: LDL 130-159 MG/DL High Risk: LDL 160-189 MG/DL Very High Risk: LDL Greater than 189 MG/DL 48 ---- RUN DATE: 08/30/06 [facility] LIVE PAGE 1 RUN TIME: 1344 Specimen Inquiry RUN USER: INTERFACE [id number] SHIRA AMTOS 55/F <REG REF 08/27> ([id number]) RSP Jose SUERO, Heather Quan -- Specimen: [id number] SOUT Spec Date: 08/27/[address]: Heather flores MD Spec Type: CYTOLOGY [...] was evaluated with the assistance of the [employer] Pap Test Imaging System. The Pap Smear [...] WINTERS(ASCP) 08/30/06 -- -- DEPARTMENT OF PATHOLOGY, [address] [place] [address] [facility] Permit #[id number] Tari Cerna II, M.D. Director Kellee Caban irector -- 49 ---- RUN DATE: 05/08/06 [facility] NMI LIVE PAGE 1 RUN TIME: 1207 Specimen Inquiry RUN USER: INTERFACE [id number] SHIRA MATOS 55/F <REG REF 05/07> ([id number]) SHEY Almonte MD, Nick edwards -- Specimen: [id number] SOUT Spec Date: 05/07/[address]: Kishan de la cruz MD Spec [...] is received in formalin labelled "Shira Matos, Proximal Transverse Colon Polyp" and consists of one, 0.8 x 0.6 x 0.6 cm. oliver-red polypoid fragment. Total, one block. DIAGNOSIS 1) Cecal polyp, excision - A) Tubular adenoma. B) No high grade dysplasia or malignancy. 2) Proximal transverse colon polyp, excision - Hyperplastic polyp. Signed Electronically signed TARI CERNA MD 05/08/06 -- -- DEPARTMENT OF PATHOLOGY, [address] [place] [address] [facility] Permit #[id number] Tari Cerna II, M.D. Director Sravan Lund M.D. Preschool Adviser Ashley irector -- 50 Anion gap measurement may [...] THE CPA ANGLES. NO BONY ABNORMALITIES 55 Anion gap measurement may be of limited value in the presence of any alkalosis, especially in a combined acid base disorder. . 56 Classification: Borderline High . 57 CALCULATED LDL APPROXIMATES THE VALUE OF A DIRECT LDL MEASUREMENT. Classification: Borderline High . Procedures Date Code Description Status 05/01/2018 01762 Electrocardiogram Complete Completed 10/22/2017 03724 Dexa Bone Density Study One Or More Sites Axial Completed Skeleton 10/18/2017 84918775 Mammogram Completed 07/25/2016 66967982 Colonoscopy Completed 04/03/2016 86899 Electrocardiogram Complete Completed 04/03/2016 97562 X-Ray Chest Two Views Completed 07/29/2014 58836 Electrocardiogram Complete Completed 06/30/2012 47512 X-Ray Chest Two Views Completed 05/20/2011 71967358 Colonoscopy Completed 08/27/2006 54714 Electrocardiogram Complete Completed 09/29/2005 94985 X-Ray Wrist Three Views Completed 06/12/2005 79642 X-Ray Finger(S) Two Views Completed 06/14/2004 52976 X-Ray Chest Two Views Completed 06/13/2004 17945 X-Ray Chest Two Views Completed 12/13/2003 02385 X-Ray Knee,Ap&Lateral Oblique Views Completed 12/04/2002 60956 Electrocardiogram Complete Completed Encounters Type Date Location Provider Dx Diagnosis Office Visit 05/01/2018 Main Office Ary Jimenez I10 Essential ( primary) 9:00a hypertension R07.89 Other chest pain N64.4 Mastodynia Office Visit 11/14/2017 9:20a Main Office Nadine Ceballos R19.7 Diarrhea, P.A. unspecified Office Visit 10/22/2017 [...] counseling Office Visit 08/15/2017 9:00a Main Office Nadine Ceballos I10 Essential ( primary) P.A. hypertension R05 Cough [...] Z41.8 [facility] Encounter for immunization Z99.89 Dependence on other enabling machines and devices Office Visit 07/12/2016 8:55a Main Office Tari Montgomery Essential ( primary) Kellee Bell hypertension F33.0 Major depressive disorder, recurrent, mild Office Visit 05/07/2016 9:05a Main Office Tari Montgomery Essential ( primary) Kellee Bell hypertension F33.0 Major depressive disorder, recurrent, mild Office Visit 04/17/2016 1:45p Main Office Tari Shaw F33.0 Major depressive Kellee Bell disorder, recurrent, mild R03.0 Elevated blood-pressure reading, w/o diagnosis of htn Office Visit 04/03/2016 3:25p Main Office aTri Shaw R07.9 Chest pain, Kellee Bell unspecified Z71.89 Other specified counseling F33.0 Major depressive disorder, recurrent, mild Z12.39 Encounter for oth screening for malignant neoplasm of breast Z23 Encounter for immunization Z41.8 Encntr for oth proc for purpose oth [facility] Office Visit 11/02/2015 2:30p Main Office Yoan Henao M.D. R51 Headache I10 Essential (primary) hypertension Z23 Encounter for immunization Office Visit 09/12/2015 3:45p Main Office Tari Shaw S80.869A Insect bite Kellee Bell (nonvenomous), unsp lower leg, init encntr Office Visit 07/29/2014 9:40a Main Office Padmini, V72.83 Examination Pina, RPA-C Preoperative Other Spec V72.8 Pre-Op Exam, Unspecified 401.9 Hypertension Unspec V72.63 Pre-Procedural Laboratory Examination Office Visit 06/25/2014 2:00p Main Office Padmini, 401.9 Hypertension Unspec Pina, RPA-C 616.10 Vaginitis & Vulvovaginitis Unspec V70.0 Examination General Medical Routine AT Health Care Facility Office Visit 02/19/2014 1:20p Main Office Padmini, 955.5 Injury Peripheral Pina, RPA-C Nerve Cutaneous Sensory Upper Limb 782.0 [...] Office Visit 04/21/2012 9:00a Main Office Nadine Ceballos, 472.1 Pharyngitis Chronic P.A. V70.0 Examination General Medical Routine AT Health Care Facility V76.51 Special Screening For Malignant Neoplasms Colon V72.31 Routine Textile Designs Sales Representative Examination 300.00 Anxiety State Unspec 285.9 Anemia Unspec V04.81 Need For Prophylactic Vaccination & Inoculation/Influenza V07.2 Prophylactic Immunotherapy 611.79 Breast Signs & Symptoms Other Office Visit 03/04/2012 1:40p Main Office Nadine Ceballos 472.1 Pharyngitis Chronic P.A. 401.9 Hypertension Unspec V77.0 Screening Thyroid Disorders Office Visit 08/31/2010 Main Office Nadine 272.0 Hypercholesterolemia Pure 3:40p Turton, P.A. 401.9 Hypertension Unspec 296.31 Depressive Disorder Major Recurrent Mild V76.51 Special Screening For Malignant Neoplasms Colon 611.72 Lump Or Mass Breast Office Visit 01/16/2010 Main Office Nadine 272.0 Hypercholesterolemia Pure 9:20a Turton, P.A. 401.9 Hypertension Unspec V76.2 Screening Malignant Neoplasm Cervix V70.0 Examination General Medical Routine AT Health Care Facility 611.72 Lump Or Mass Breast V72.31 Routine Textile Design[employer] Sales Representative Examination Office Visit 05/27/2009 8:40a Main Office Nadine Ceballos, 401.9 Hypertension Unspec P.A. 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 Examination 401.1 Hypertension Benign 709.9 Skin & Subcutaneous Tissue Disorders Unspec 627.2 Menopausal Or Female Climacteric State, Symptomatic 300.4 Dysthymic Disorder Office Visit 09/26/2004 1:40p Main Office Shital 401.1 Hypertension Benign Dacia, N.P. 272.4 Hyperlipidemia Other Unspec 300.4 [...] Main Office Tari Shaw 487.1 Influenza W/ Other Kellee Bell Respiratory Manifestations Office Visit 03/17/2004 11:40a Main Office Shital 401.1 Hypertension Angie Dacia, N.P. 627.3 Atrophic Vaginitis Postmenopausal 719.46 [...] Disorder Office Visit 12/04/2002 10:15a Main Office Atri NaldoGagandeep Bell, 786.59 Pain Chest Other M.D. 574.20 Calculus Gallbladder W/O Cholecystitis W/O Obstruction 789.01 Pain Abdominal Right Upper Quadrant Plan of Treatment 06/12/2018 - Quintin Pringle D.O.I10 Essential (primary) brakfjrgxrisF58.89 Other chest painNew Orders:EKG W/ Reading, Ordered: 06/12/18R42 Dizziness and ksofjzcnyJ11.02 Shortness of breath
[2018-06-13 10:43] LABS: ABS Basophils 0.1 10^3/ul (0-0.2); ABS Eosinophils 0 10^3/ul (0-0.6); ABS Lymphocytes 1.3 10^3/ul (1.0-4.8); ABS Monocytes 0.6 10^3/ul (0-0.8); ABS Nucleated RBC 0 10^3/ul; Eosinophil % 0.1 %; Hematocrit 40 % (35-47); Hemoglobin 13.6 g/dl (12.0-16.0); Lymphocyte % 18.8 %; Mean Corpuscular HGB Conc 34 g/dl (31-36); Mean Corpuscular Hemoglobin 32 pg (27-31); Mean Corpuscular Volume 94 fL (80-97); Mean Platelet Volume 8.2 fL (7.4-10.4); Nucleated Red Blood Cells % 0; Platelet Count 268 10^3/ul (150-450); Red Blood Count 4.25 10^6/ul (4.00-5.40); Red Cell Distribution Width 13 % (10.5-15)
[2018-06-13 10:53] LABS: INR 1.03 (0.77-1.02)
[2018-06-13 11:03] LABS: Albumin 4.3 g/dL (3.2-5.2); Albumin/Globulin Ratio 1.3 (1-3); Calcium 9.9 mg/dL (8.6-10.3); EGFR African American 110.3 (>60); EGFR Non-African American 91.2 (>60); Globulin 3.3 g/dL (2-4); Potassium 3.5 mmol/L (3.5-5.0); Total Bilirubin 0.5 mg/dL (0.2-1.0); Total Protein 7.6 g/dL (6.4-8.9)
[2018-06-13 13:27] VITALS: BP 125/73
== END | disposition home or self-care (01) ==
LOC: ED 09:26
DX: G45.9 Transient cerebral ischemic attack, unspecified (principal); R07.9 Chest pain, unspecified; Z87.891 Personal history of nicotine dependence; I10 Essential (primary) hypertension; D64.9 Anemia, unspecified; G47.30 Sleep apnea, unspecified; K21.9 Gastro-esophageal reflux disease without esophagitis
CPT/HCPCS: 36415; 70450; 71045; 80053; 83605; 84484; 85025; 85610; 93005; 99283